=== PATIENT | male | born 1930 | race Caucasian/White ===

== ENCOUNTER 2017-08-13 17:52 | Inpatient (IN) | payer OTHER ==
[~2017-08-13] VITALS: Ht 180.3 cm; Wt 80.5 kg
[~2017-08-13 17:52] MED LIST: ASPI-435 PO; ATOR-26 PO; CHOL1000 PO; LISI-461 PO; LORA-741 PO; LVQ500 PO; MAGNESIUM 250MG PO; METFTAB PO; METO50TA16 PO; MULTCAP98 PO
[2017-08-13] MEDS ORDERED: SODIUM CHLORIDE 0.9% 1000ML 500 ML IV STA (18:23)
[2017-08-13] MEDS ORDERED: ONDANSETRON INJ 2 MG/ML 2 ML VIAL IV STA (18:23)
[2017-08-13] MEDS ORDERED: PIPERACILLIN/TAZOBACTAM 4.5 GM/100ML D5W IV STA (18:23)
--- NOTE | 2017-08-13 19:06 | DIAGNOSTIC IMAGING REPORT ---
CHEST ONE VIEW PORTABLE CLINICAL HISTORY: Abdominal pain. COMPARISON STUDY: Chest radiograph June 08, 2015 and PET/CT July 14, 2009. FINDINGS: Lung volumes are at the lower limits of normal. There is no pneumothorax or pleural effusion. There is mild asymmetric left lower lung opacity. Several calcified pleural plaques are noted. There is no evidence for pulmonary edema. Moderate cardiomegaly is noted. IMPRESSION: Mild asymmetric left lower lung interstitial thickening and opacity. This is likely chronic or atelectatic. However, pneumonia could appear similar. Follow-up radiographs are recommended. Electronically signed by: Cornel Huff M.D. 08/13/2017 7:05 PM Dictated Date/Time: 08/13/2017 7:03 PM
[2017-08-13 19:15] LABS: BASO % 0.1 %; BASO ABS # 0.01 K/uL (0-0.2); HEMATOCRIT 37.8 % (42-52); HEMOGLOBIN 12.9 g/dL (14.0-18.0); IG# 0.07 K/uL (0.00-0.02); LYMPH % 6.5 %; LYMPH ABS # 1.02 K/uL (1.2-3.4); MEAN CELL VOLUME 85.9 fL (80-100); MEAN CORPUSCULAR HEMOGLOBIN 29.3 pg (25-34); MEAN CORPUSCULAR HGB CONC 34.1 g/dl (32-36); MEAN PLATELET VOLUME 9.2 fL (7.4-10.4); MONO % 10.5 %; MONO ABS # 1.66 K/uL (0.11-0.59); NEUT % 82.5 %; NEUT ABS # 13.02 K/uL (1.4-6.5); PLATELET COUNT 179 K/uL (130-400); RED CELL DISTRIBUTION WIDTH CV 14.1 % (11.5-14.5); RED CELL DISTRIBUTION WIDTH SD 44.2 fL (36.4-46.3); WHITE BLOOD COUNT 15.78 K/uL (4.8-10.8)
--- NOTE | 2017-08-13 19:17 | EMERGENCY ROOM VISIT NOTE ---
History Report prepared by Lyn: Quique Holland Under the Supervision of: Dr. Aiden Mcclain M.D. First contact with patient: 18:18 Chief Complaint: ABNORMAL DIAGNOSTIC TESTING Stated Complaint: ACUTE PAIN IN ABDOMEN History of Present Illness The patient is an 87 year old male who presents to the Emergency Room with complaints of constant, worsening, sharp, abdominal pain beginning at 0300 this morning. The patient states that he felt fine after he ate last night and woke up at around 0300 today with RUQ abdominal pain. He notes that his pain has since worsened throughout the day. He reports that he originally thought that he was constipated, but went to [facility] today and had a CT done which showed that he had a problem with his gallbladder. The patient states that he has not had any symptoms similar to his current symptoms. He notes that his pain worsens when he takes a deep breath. He denies any cough, vomiting, nausea, urinary symptoms, fever, chills, and diarrhea. He reports that he has a history of lymphoma and diabetes. Per , the patient has a family history of gallstones. The patient rates his pain as a 9-10/10. Source of History: patient Onset: 0300 this morning Position: abdomen (RUQ) Symptom Intensity: 9-10/10 Quality: sharp Timing: constant, worsening Modifying Factors (Worsening): breathing (deep breathing) Associated Symptoms: No fevers, No chills, No cough, No nausea, No vomiting , No diarrhea, No urinary symptoms Note: The patient states that he had a CT done today which showed a problem with his gallbladder. Review of Systems See HPI for pertinent positives & negatives. A total of 10 systems reviewed and were otherwise negative. Past Medical & Surgical Medical Problems: (1) Cerebrovascular accident involving cerebellum (2) Diabetes mellitus, type II (3) H/O Hodgkin's lymphoma (4) HLD (hyperlipidemia) (5) Hypertension (6) MDD (major depressive disorder) Surgical Problems: (1) History of left-sided carotid endarterectomy (2) History of lumbar laminectomy (3) S/P prostatectomy Social History Problems: (1) Heart disease Family History Cancer Diabetes mellitus FH: heart disease FHx: gallstones FHx: lung disease Hypertension Social History Smoking Status: Never Smoker Alcohol Use: occasionally Drug Use: none Marital Status: Housing Status: lives with family Occupation Status: retired Current/Historical Medications Scheduled Aspirin (Aspirin Ec), 81 MG PO QAM Atorvastatin (Lipitor), 80 MG PO QPM Cholecalciferol (Vitamin D3), 2,000 INTER.UNIT PO QAM Escitalopram (Lexapro), 10 MG PO QPM Latanoprost (Xalatan 0.005% Oph Malia), 1 DROP OPB HS Magnesium Oxide (Mag-Ox), 400 MG PO QAM Metformin Ext Rel (Glucophage Ext Rel), 500 MG PO BID Metoprolol Tartrate (Lopressor) (Lopressor), 25 MG PO QAM Multiple Vitamins W/ Minerals (Icaps), 1 CAP PO QAM Scheduled PRN Fluticasone Propionate (Nasal) (Flonase Allergy Relief), 2 SPRAYS ROB DAILY PRN for Allergy Symptoms Lorazepam (Ativan), 0.5 MG PO TID PRN for Anxiety Allergies Coded Allergies: Cephalosporins (Verified Allergy, Intermediate, KEFLEX-HAS HAD FORTAZ W/O PROBLEM, 06/08/15) KEFLEX Oxycodone (Unverified Allergy, Mild, HALLUCINATIONS, 06/08/15) Metoclopramide (Verified Allergy, Unknown, 06/08/15) Promethazine (Verified Allergy, Unknown, 06/08/15) Physical Exam Vital Signs Date Time Temp Pulse Resp B/P (MAP) Pulse Ox O2 Delivery O2 Flow Rate FiO2 08/13/17 19:52 90 Nasal Cannula 2.0 08/13/17 19:49 93 20 142/71 90 Nasal Cannula 2.0 08/13/17 18:13 36.5 108 18 139/71 97 Room Air Physical Exam GENERAL: Patient is in no acute distress. HEENT: No acute trauma, normocephalic atraumatic, mucous membranes moist, no nasal congestion, no scleral icterus. NECK: No stridor, no adenopathy, no meningismus, trachea is midline. LUNGS: Clear to auscultation bilaterally, no wheeze, no rhonchi, breath sounds equal. HEART: Tachycardic with a 2/6 systolic murmur, regular rhythm. ABDOMEN: Soft, moderately tender to the RUQ, bowel sounds positive, no hernias, no peritonitis. EXTREMITIES: No cyanosis or edema, full range of motion of all the joints without pain or difficulty, no signs for acute trauma. NEUROLOGIC: Oriented x 3, no acute motor or sensory deficits, no focal weakness. SKIN: No rash, no jaundice, no diaphoresis. Medical Decision & Procedures ER Provider Diagnostic Interpretation: CT ABDOMEN/PELVIS Without Contrast performed in the outpatient setting. CT shows distended gallbladder, multiple gallstones, and pericholecystic inflammatory changes consistent with acute cholecystitis. Radiology results as stated below per my review and radiologist interpretation: CHEST ONE VIEW PORTABLE FINDINGS: Lung volumes are at the lower limits of normal. There is no pneumothorax or pleural effusion. There is mild asymmetric left lower lung opacity. Several calcified pleural plaques are noted. There is no evidence for pulmonary edema. Moderate cardiomegaly is noted. IMPRESSION: Mild asymmetric left lower lung interstitial thickening and opacity. This is likely chronic or atelectatic. However, pneumonia could appear similar. Follow-up radiographs are recommended. Electronically signed by: Cornel Huff M.D. 08/13/2017 7:05 PM ABDOMINAL ULTRASOUND, RIGHT UPPER QUADRANT FINDINGS: Liver is sonographically normal. This exam is mildly compromised by suboptimal penetration and the pancreas is obscured on this study. There is no biliary ductal dilatation. Stones and sludge are noted within the gallbladder. There is moderate gallbladder wall thickening. The patient was tender over the gallbladder during this exam. There is no right hydronephrosis. Note is made of a 3.3 cm right renal cyst. IMPRESSION: 1. Cholelithiasis and sludge within gallbladder with moderate gallbladder wall thickening. The findings suggest acute cholecystitis. 2. No biliary ductal dilatation. 3. Obscured pancreas due to overlying bowel gas. Electronically signed by: Cornel Huff M.D. 08/13/2017 8:53 PM Laboratory Results Test 08/13/17 18:47 Immature Granulocyte % (Auto) 0.4 % White Blood Count 15.78 K/uL (4.8-10.8) Red Blood Count 4.40 M/uL (4.7-6.1) Hemoglobin 12.9 g/dL (14.0-18.0) Hematocrit 37.8 % (42-52) Mean Corpuscular Volume 85.9 fL (80-100) Mean Corpuscular Hemoglobin 29.3 pg (25-34) Mean Corpuscular Hemoglobin Concent 34.1 g/dl (32-36) Platelet Count 179 K/uL (130-400) Mean Platelet Volume 9.2 fL (7.4-10.4) Neutrophils (%) (Auto) 82.5 % Lymphocytes (%) (Auto) 6.5 % Monocytes (%) (Auto) 10.5 % Eosinophils (%) (Auto) 0.0 % Basophils (%) (Auto) 0.1 % Neutrophils # (Auto) 13.02 K/uL (1.4-6.5) Lymphocytes # (Auto) 1.02 K/uL (1.2-3.4) Monocytes # (Auto) 1.66 K/uL (0.11-0.59) Eosinophils # (Auto) 0.00 K/uL (0-0.5) Basophils # (Auto) 0.01 K/uL (0-0.2) Immature Granulocyte # (Auto) 0.07 K/uL (0.00-0.02) Prothrombin Time 12.2 SECONDS (9.0-12.0) Prothromb Time International Ratio 1.2 (0.9-1.1) Activated Partial Thromboplast Time 27.6 SECONDS (21.0-31.0) Partial Thromboplastin Ratio 1.1 Urine Color DK YELLOW Urine Appearance TURBID (CLEAR) Urine pH 5.0 (4.5-7.5) Urine Specific [place] 1.022 (1.000-1.030) Urine Protein 1+ (NEG) Urine Glucose (UA) 1+ (NEG) Urine Ketones TRACE (NEG) Urine Occult Blood 1+ (NEG) Urine Nitrite POS (NEG) Urine Bilirubin NEG (NEG) Urine Urobilinogen NEG (NEG) Urine Leukocyte Esterase LARGE (NEG) Urine WBC (Auto) >30 /hpf (0-5) Urine RBC (Auto) 0-4 /hpf (0-4) Urine Hyaline Casts (Auto) 1-5 /lpf (0-5) Urine Epithelial Cells (Auto) 5-10 /lpf (0-5) Urine Bacteria (Auto) 4+ (NEG) Lipase 79 U/L (73-393) Laboratory results reviewed by me. Medications Administered Medications (Trade) Dose Ordered Sig/Amilcar Route Start Time Stop Time Status Last Admin Dose Admin Sodium Chloride 500 ml @ 999 mls/hr Q31M STAT IV 08/13/17 18:23 08/13/17 18:53 DC 08/13/17 18:23 999 MLS/HR Ondansetron HCl (Zofran Inj) 4 mg NOW STAT IV 08/13/17 18:23 08/13/17 18:27 DC 08/13/17 19:02 4 MG Piperacillin Sod/ Tazobactam Sod (Zosyn Iv) 4.5 gm NOW STAT IV 08/13/17 18:23 08/13/17 18:27 DC 08/13/17 19:02 4.5 GM Magnesium Sulfate (Magnesium Sulfate) 1 gm NOW STAT IV 08/13/17 19:26 08/13/17 19:27 DC 08/13/17 19:26 1 GM Sodium Chloride 500 ml @ 999 mls/hr Q31M STAT IV 08/13/17 19:29 08/13/17 19:59 DC 08/13/17 19:29 999 MLS/HR Ketorolac Tromethamine (Toradol Inj) 15 mg NOW STAT IV 08/13/17 20:40 08/13/17 20:41 DC 08/13/17 20:54 15 MG ECG Per My Interpretation Indication: abdominal pain Rate (beats per minute): 92 Rhythm: normal sinus Findings: LBBB (imcomplete), other (No ST elevation, no PVCs) ED Course 1818: The patient was evaluated in room B3. A complete history and physical exam was performed. 1822: Zosyn Iv 4.5gm IV, Zofran Inj 4mg IV, Sodium Chloride 500 ml @ 999 mls/hr IV 1829: Discussed the patients case with Dr. Wharton - General Surgery, [facility] [place]. He states that the patient sounds like he will have to be admitted first to the hospital, and then to surgery, rather than being admitted to surgery directly. 1924: I reevaluated and updated the patient. He agrees to the treatment plan. 1925: Magnesium Sulfate 1gm IV 1928: Sodium Chloride 500 ml @ 999 mls/hr IV 2020: Upon reexamination the patient is stable. I discussed results and treatment plan with the patient. He verbalizes agreement and understanding. I spoke with [facility]. We discussed the patient's results and findings. The patient will be evaluated by Dr. Minaya for further management. 2037: I rechecked the patient. He is still in [place]. 2039: Toradol Inj 15mg IV 2105: I reevaluated and updated the patient. Medical Decision Differential diagnoses include: acute cholecystitis, gallstones, UTI, diverticulitis, appendicitis, pneumonia, bowel rupture, renal failure, electrolyte imbalance, and anemia. There is a moderate leukocytosis at 15,000, this is consistent with infection. No concerning anemia. Magnesium was low, no kidney failure. Bilirubin was elevated. No evidence for pancreatitis. Chest film showed some atelectasis, no obvious pneumonia, no pneumothorax. EKG showed a sinus rhythm, no acute ischemic change. Gallbladder ultrasound does show evidence for acute cholecystitis. Urinalysis does suggest infection. Urine culture and blood cultures are pending. Lactic acid level was somewhat elevated, concerning for infection/sepsis. The patient presents with acute cholecystitis diagnosed as an outpatient. He also appears to have a UTI. He has an elevated white count and lactic acid level. The patient received IV saline, he received IV Toradol for pain. He was given IV Zosyn as antibiotic coverage. He received IV magnesium and IV Zofran. The patient seems to be resting fairly comfortably. I do think a hospital stay is warranted. I discussed his case with case management. I talked with the on- call surgeon as well as the on-call hospitalist. Medication Reconcilliation Current Medication List: was personally reviewed by me Blood Pressure Screening Patient's blood pressure: Elevated blood pressure Blood pressure disposition: Referred to PCP Consults Time Called: 1827 [facility] Returned Call: 1829 Discussed the patients case. He states that the patient sounds like he will have to be admitted first to the hospital, and then to surgery, rather than being admitted to surgery directly. Additional Consults: Time Called: 2015 [facility] Returned Call: 2020 Additional Comments: Discussed the patient's case. The patient will be evaluated for further management. Impression Primary Impression: Acute cholecystitis Additional Impressions: RUQ abdominal pain UTI (urinary tract infection) Scribe Attestation The scribe's documentation has been prepared under my direction and personally reviewed by me in its entirety. I confirm that the note above accurately reflects all work, treatment, procedures, and medical decision making performed by me. Departure Information Dispostion Being Evaluated By Hospitalist Referrals Rozick, Mehdi S.,M.D. (PCP) Patient Instructions [facility] Problem Qualifiers
[2017-08-13 19:22] LABS: INR 1.2 (0.9-1.1); PTT PATIENT 27.6 SECONDS (21.0-31.0)
[2017-08-13 19:24] LABS: ALBUMIN 3.5 gm/dl (3.4-5.0); CALCIUM 9.1 mg/dl (8.5-10.1); CREATININE 1.11 mg/dl (0.60-1.40); POTASSIUM 3.9 mmol/L (3.5-5.1)
[2017-08-13] MEDS ORDERED: MAGNESIUM SULFATE 1GM / D5W 1 GM BAG IV STA (19:26)
[2017-08-13] MEDS ORDERED: SODIUM CHLORIDE 0.9% 500ML 500 ML IV STA (19:29)
[2017-08-13 19:40] LABS: TOTAL PROTEIN 7.4 gm/dl (6.4-8.2)
[2017-08-13] MEDS ORDERED: KETOROLAC TROMETHAMINE 30 MG/ML VIAL IV STA (20:40)
--- NOTE | 2017-08-13 20:54 | DIAGNOSTIC IMAGING REPORT ---
ABDOMINAL ULTRASOUND, RIGHT UPPER QUADRANT HISTORY: Right upper quadrant abdominal pain. COMPARISON: PET/CT July 14, 2009 FINDINGS: Liver is sonographically normal. This exam is mildly compromised by suboptimal penetration and the pancreas is obscured on this study. There is no biliary ductal dilatation. Stones and sludge are noted within the gallbladder. There is moderate gallbladder wall thickening. The patient was tender over the gallbladder during this exam. There is no right hydronephrosis. Note is made of a 3.3 cm right renal cyst. IMPRESSION: 1. Cholelithiasis and sludge within gallbladder with moderate gallbladder wall thickening. The findings suggest acute cholecystitis. 2. No biliary ductal dilatation. 3. Obscured pancreas due to overlying bowel gas. Electronically signed by: Cornel Huff M.D. 08/13/2017 8:53 PM Dictated Date/Time: 08/13/2017 8:51 PM
[2017-08-13] MEDS ORDERED: DEXTROSE 50% 50 ML SYR IV PRN (21:30)
[2017-08-13] MEDS ORDERED: GLUCOSE 10 TABS/TUBE PO PRN (21:30)
[2017-08-13] MEDS ORDERED: GLUCAGON FOR INJ 1 MG VIAL SQ PRN (21:30)
[2017-08-13] MEDS ORDERED: ONDANSETRON INJ 2 MG/ML 2 ML VIAL IV PRN (21:30)
[2017-08-13] MEDS ORDERED: SODIUM CHLORIDE 0.9% 500ML 500 ML IV SCH (21:30)
[2017-08-13] MEDS ORDERED: GLUCOSE 40% GEL 15 GM TUBE PO PRN (21:30)
[2017-08-13] MEDS ORDERED: MoRPHine SULFATE 2 MG/ML CARP IV PRN (21:30)
--- NOTE | 2017-08-13 21:33 | History and Physical ---
History & Physical Date & Time of Service: Aug 13, 2017 at 21:33 Chief Complaint: Acute Pain In Abdomen Primary Care Physician: Mehdi Jernigan M.D. History of Present Illness Source: patient, clinic records, hospital records Patient is an 87-year-old male with a PMH of DM II, HTN, history of lymphoma ( in remission) and other medical problems listed below who presents with abdominal pain that began this morning. Patient was in normal state of health last evening when he went to bed but awoke at 0300 with sharp, nonradiating, 9/ 10 intermittent right upper quadrant pain. Pain is worse with inspiration and there are no alleviating factors. Associated with poor p.o. intake and decreased appetite today. Denies any associated nausea, vomiting or diarrhea. Went to PCP for evaluation and had a CT abdomen/pelvis done, which showed evidence of acute cholecystitis. Was sent to ED for IV antibiotics and surgical evaluation. Denies lightheadedness, visual changes, chest pain, SOB or LE swelling. Denies a personal history of gallstones. Lives with his , who manages patient's medications. Takes baby aspirin daily but denies use of anticoagulation. Denies history of heart disease, CHF or CVA (H/o cerebellar CVA on [facility] problem list, however). Is a DNR. 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 (2) Diabetes mellitus, type II Status: Chronic (3) H/O Hodgkin's lymphoma Status: Chronic (4) HLD (hyperlipidemia) Status: Chronic (5) Hypertension Status: Chronic (6) MDD (major depressive disorder) Status: Chronic Surgical Problems: (1) History of left-sided carotid endarterectomy Permanent Comment: 2000 Status: Chronic (2) History of lumbar laminectomy Permanent Comment: 2014 Status: Chronic (3) S/P prostatectomy Status: Chronic Social History Problems: (1) Heart disease Status: Chronic Family History Cancer Diabetes mellitus FH: heart disease FHx: gallstones FHx: lung disease Hypertension Social History Smoking Status: Former Smoker Alcohol Use: none Drug Use: none Marital Status: Housing status: lives with significant other Occupational Status: retired Allergies Coded Allergies: Cephalosporins (Verified Allergy, Intermediate, KEFLEX-HAS HAD FORTAZ W/O PROBLEM, 06/08/15) KEFLEX Oxycodone (Unverified Allergy, Mild, HALLUCINATIONS, 06/08/15) Metoclopramide (Verified Allergy, Unknown, 06/08/15) Promethazine (Verified Allergy, Unknown, 06/08/15) Home Medications Scheduled Aspirin (Aspirin Ec), 81 MG PO QAM Atorvastatin (Lipitor), 80 MG PO QPM Cholecalciferol (Vitamin D3), 2,000 INTER.UNIT PO QAM Escitalopram (Lexapro), 10 MG PO QPM Latanoprost (Xalatan 0.005% Oph Malia), 1 DROP OPB HS Magnesium Oxide (Mag-Ox), 400 MG PO QAM Metformin Ext Rel (Glucophage Ext Rel), 500 MG PO BID Metoprolol Tartrate (Lopressor) (Lopressor), 25 MG PO QAM Multiple Vitamins W/ Minerals (Icaps), 1 CAP PO QAM Scheduled PRN Fluticasone Propionate (Nasal) (Flonase Allergy Relief), 2 SPRAYS ROB DAILY PRN for Allergy Symptoms Lorazepam (Ativan), 0.5 MG PO TID PRN for Anxiety Review of Systems Ten systems reviewed and negative except as noted in the HPI. Constitutional: No fever, No chills, No sweats, No weight loss, No weakness Eyes: No worsening of vision, No diplopia ENT: No nasal symptoms, No sore throat Respiratory: No cough, No sputum, No wheezing, No shortness of breath, No dyspnea on exertion, No dyspnea at rest Cardiovascular: No chest pain, No orthopnea, No edema, No palpitations Abdomen: + pain, No nausea, No vomiting, No diarrhea, No constipation Musculoskeletal: No joint pain, No muscle pain Genitourinary - Male: No hematuria, No dysuria, No urinary frequency, No urinary urgency Neurologic: No paralysis, No weakness, No numbness/tingling Hematologic / Lymphatic: No abnormal bleeding/bruising Integumentary: No rash, No itch Physical Exam Vital Signs Date Time Temp Pulse Resp B/P (MAP) Pulse Ox O2 Delivery O2 Flow Rate FiO2 08/13/17 19:52 90 Nasal Cannula 2.0 08/13/17 19:49 93 20 142/71 90 Nasal Cannula 2.0 08/13/17 18:13 36.5 108 18 139/71 97 Room Air General Appearance: + mild distress Head: normocephalic, atraumatic Eyes: normal inspection, PERRL, sclerae normal ENT: normal ENT inspection, hearing grossly normal, pharynx normal (dry mucous membranes ) Neck: supple, thyroid normal, trachea midline Respiratory/Chest: chest non-tender, lungs clear, normal breath sounds, no respiratory distress, no accessory muscle use Cardiovascular: regular rate, rhythm, normal peripheral pulses, + systolic murmur Abdomen/GI: normal bowel sounds, soft, no organomegaly, + tenderness (TTP in RUQ, RLQ ) Back: normal inspection Extremities/Musculoskelatal: normal inspection, no calf tenderness, no pedal edema Neurologic/Psych: no motor/sensory deficits, alert, normal mood/affect, oriented x 3 Skin: normal color, warm/dry Diagnostics Laboratory Results Results Past 24 Hours Test 08/13/17 18:47 08/13/17 19:45 Range/Units White Blood Count 15.78 4.8-10.8 K/uL Red Blood Count 4.40 4.7-6.1 M/uL Hemoglobin 12.9 14.0-18.0 g/dL Hematocrit 37.8 42-52 % Mean Corpuscular Volume 85.9 80-100 fL Mean Corpuscular Hemoglobin 29.3 25-34 pg Mean Corpuscular Hemoglobin Concent 34.1 32-36 g/dl Platelet Count 179 130-400 K/uL Mean Platelet Volume 9.2 7.4-10.4 fL Neutrophils (%) (Auto) 82.5 % Lymphocytes (%) (Auto) 6.5 % Monocytes (%) (Auto) 10.5 % Eosinophils (%) (Auto) 0.0 % Basophils (%) (Auto) 0.1 % Neutrophils # (Auto) 13.02 1.4-6.5 K/uL Lymphocytes # (Auto) 1.02 1.2-3.4 K/uL Monocytes # (Auto) 1.66 0.11-0.59 K/uL Eosinophils # (Auto) 0.00 0-0.5 K/uL Basophils # (Auto) 0.01 0-0.2 K/uL RDW Standard Deviation 44.2 36.4-46.3 fL RDW Coefficient of Variation 14.1 11.5-14.5 % Immature Granulocyte % (Auto) 0.4 % Immature Granulocyte # (Auto) 0.07 0.00-0.02 K/uL Prothrombin Time 12.2 9.0-12.0 SECONDS Prothromb Time International Ratio 1.2 0.9-1.1 Activated Partial Thromboplast Time 27.6 21.0-31.0 SECONDS Partial Thromboplastin Ratio 1.1 Urine Color DK YELLOW Urine Appearance TURBID CLEAR Urine pH 5.0 4.5-7.5 Urine Specific [place] 1.022 1.000-1.030 Urine Protein 1+ NEG Urine Glucose (UA) 1+ NEG Urine Ketones TRACE NEG Urine Occult Blood 1+ NEG Urine Nitrite POS NEG Urine Bilirubin NEG NEG Urine Urobilinogen NEG NEG Urine Leukocyte Esterase LARGE NEG Urine WBC (Auto) >30 0-5 /hpf Urine RBC (Auto) 0-4 0-4 /hpf Urine Hyaline Casts (Auto) 1-5 0-5 /lpf Urine Epithelial Cells (Auto) 5-10 0-5 /lpf Urine Bacteria (Auto) 4+ NEG Sodium Level 131 136-145 mmol/L Potassium Level 3.9 3.5-5.1 mmol/L Chloride Level 95 98-107 mmol/L Carbon Dioxide Level 25 21-32 mmol/L Anion Gap 11.0 3-11 mmol/L Blood Urea Nitrogen 21 7-18 mg/dl Creatinine 1.11 0.60-1.40 mg/dl Est Creatinine Clear Calc Drug Dose 49.9 ml/min Estimated GFR () 68.8 Estimated GFR (Non- 59.4 BUN/Creatinine Ratio 18.8 10-20 Random Glucose 217 70-99 mg/dl Calcium Level 9.1 8.5-10.1 mg/dl Magnesium Level 1.4 1.8-2.4 mg/dl Total Bilirubin 1.9 0.2-1 mg/dl Aspartate Amino Transf (AST/SGOT) 25 15-37 U/L Alanine Aminotransferase (ALT/SGPT) 22 12-78 U/L Alkaline Phosphatase 35 45-117 U/L Total Protein 7.4 6.4-8.2 gm/dl Albumin 3.5 3.4-5.0 gm/dl Globulin 3.9 2.5-4.0 gm/dl Albumin/Globulin Ratio 0.9 0.9-2 Lipase 79 73-393 U/L Lactic Acid Level 2.7 0.4-2.0 mmol/L Microbiology Results 08/13/17 Urine Culture, Received Pending Diagnostic Radiology RUQ ultrasound: IMPRESSION: 1. Cholelithiasis and sludge within gallbladder with moderate gallbladder wall thickening. The findings suggest acute cholecystitis. 2. No biliary ductal dilatation. 3. Obscured pancreas due to overlying bowel gas. CT [facility] Distended gall bladder with multiple gallstones and evidence of pericholecystic inflammatory changes suggestive of acute cholecystitis CXR: IMPRESSION: Mild asymmetric left lower lung interstitial thickening and opacity. This is likely chronic or atelectatic. However, pneumonia could appear similar. Follow-up radiographs are recommended. EKG Normal sinus rhythm, Left axis deviation, Incomplete left bundle block, Nonspecific ST abnormality When compared with ECG of 14-MAR-2016 16:46, No significant change was found No change from prior EKG Impression Assessment and Plan Patient is an 87-year-old male with a PMH of DM II, HTN, history of lymphoma ( in remission) and other medical problems listed below who presents with abdominal pain that began this morning. Sepsis 2/2 acute cholecystitis, UTI: -Severe RUQ pain beginning at 0300 this AM -Leukocytosis of 15.78, HR >90, source of abd infection, UTI -Lactate of 2.7 -Cont IVF resuscitation -Repeat lactate Acute cholecystitis: -Surgery consulted -Plan for OR tomorrow -NPO except chips and sips, meds -Zosyn for empiric coverage -Blood cultures pending -Cont IVF, pain control Complicated UTI: - + UA, culture pending -Zosyn -IVF DM II: -BSG elevated to 217 -A1c of 7.1 in Apr 2017 -Repeat a1c -Hold oral agents -SSI while in-patient -BSG checks AC HS HTN: -Normotensive -Cont beta miriam Mood disorder: -Cont SSRI -Ativan PRN H/o Lymphoma: -In remission -S/p chemo Hypomagnesemia: -Replaced Mg in ED -Cont oral supplement -Monitor Vit D deficiency: -Vit D held for now DVT Ppx: SQ heparin Code status: DNR per discussion with patient PCP: Delon Dispo: Admitted to med/surg. Discharge planning ordered. Patient seen in collaboration with Dr. Murray. Please see addendum. Attending Note: Patient is an 87 yr male who presents with history of Right sided abdominal pain which has been progressively worsening since one day. Patient had CT scan which is suggestive of acute cholecystitis. Patient had H/O cholelithiasis but were never symptomatic. UA is suggestive of UTI but patient denies any urinary symptoms. He had UTI in the past. Has decreased appetite. Physical Exam: Vitals signs as noted above General Appearance:Moderately built and nourished, no apparent distress Head: normocephalic, Atraumatic Eyes: normal inspection, EOMI, PERRL Neck: supple, Trachea midline Respiratory/Chest: Normal breath sounds, CTA Cardiovascular: S1, S2, + systolic murmur Abdomen/GI:Soft, RUQ and RLQ tender, Bowel sounds present Extremities/Musculoskelatal:normal inspection, Trace edema Neurologic/Psych:AAOX3, grossly no focal neurological deficits Skin:normal color,warm Assessment and Plan: Sepsis: Secondary to Acute Cholecystitis and possible UTI IV fluids, IV antibiotics Follow up cultures Surgery consulted hypomagnesemia: Replace and monitor hyponatremia: IV fluids Monitor sodium levels I personally reviewed the record. Patient is interviewed and examined at bedside. Patient's care is coordinated with Kirsten Eastman PA-C. Please refer to the documentation above for details of patient's presentation and for discussion of other issues. Resuscitation Status VTE Prophylaxis Will order VTE Prophylaxis: Yes
[2017-08-13] MEDS ORDERED: LATA0.5S OPB (21:38)
[2017-08-13] MEDS ORDERED: MAGN400T6 PO (21:38)
[2017-08-13] MEDS ORDERED: ESCI10TA17 PO (21:38)
[2017-08-13] MEDS ORDERED: ASPI81TA28 PO (21:38)
[2017-08-13] MEDS ORDERED: BRIM0.2S18 OPB (21:38)
[2017-08-13] MEDS ORDERED: FLUT0.15 NAE (21:44)
[2017-08-13] MEDS ORDERED: CHOL2000 PO (21:44)
[2017-08-13] MEDS ORDERED: PIPERACILL/TAZOBAC CONSULT ACTIVE PRN ×2 (21:54→23:30)
[2017-08-13 21:57] VITALS: BP 144/74; PULSE 78; TEMP 37; O2SAT 92; Ht 180.3 cm; Wt 80.5 kg
[2017-08-13] MEDS ORDERED: KETOROLAC TROMETHAMINE 15 MG/ML VIAL IV. PRN (22:00)
[2017-08-13] MEDS ORDERED: SODIUM CHLORIDE 0.9% 1000ML 1,000 ML IV SCH ×2 (22:00→23:00)
[2017-08-13] MEDS ORDERED: FLUTICASONE PROPIONATE NA SPR 16 GM BTL NAE PRN (22:15)
[2017-08-13] MEDS ORDERED: LORAZEPAM 0.5 MG TAB PO PRN (22:15)
[2017-08-13] MEDS ORDERED: NURSING DECISION MEDICATION ORDER SCH (23:15)
--- NOTE | 2017-08-13 23:21 | Surgery Consultation ---
Consultation Date of Consultation: Aug 13, 2017. Attending Physician: History of Present Illness Patient is a 87M who presented to the ED this evening with Sharp RUQ pain which began around 0300 this morning. Reports he felt fine after eating dinner last night but the pain woke him up from sleep this morning. He feels it has worsened throughout the day. He went to [facility] today and had a CT done which shows problems with his gallbladder. Denies symptoms like this in the past. He does report a decreased appetite. Denies nausea/vomiting/fever/chills/recent illness. He has been urinating and moving his bowels without issue. FHx positive for gallbladder disease. Denies use of blood thinning or anticoagulant medications. PSHx significant for port placement/removal, exploratory laparoscopy. WBC 15.78. RUQ U/S shows Cholelithiasis and sludge within gallbladder with moderate gallbladder wall thickening. The findings suggest acute cholecystitis. Past Medical/Surgical History Medical Problems: (1) Altered mental status Status: Acute Family History Cancer Diabetes mellitus FH: heart disease FHx: gallstones FHx: lung disease Hypertension Social History Smoking Status: Never Smoker Drug Use: none Marital Status: Housing Status: lives with family Occupation Status: retired Allergies Coded Allergies: Cephalosporins (Verified Allergy, Intermediate, KEFLEX-HAS HAD FORTAZ W/O PROBLEM, 06/08/15) KEFLEX Oxycodone (Unverified Allergy, Mild, HALLUCINATIONS, 06/08/15) Metoclopramide (Verified Allergy, Unknown, 06/08/15) Promethazine (Verified Allergy, Unknown, 06/08/15) Home Medications Scheduled Aspirin (Aspirin Ec), 81 MG PO QAM Atorvastatin (Lipitor), 80 MG PO QPM Cholecalciferol (Vitamin D3), 2,000 INTER.UNIT PO QAM Escitalopram (Lexapro), 10 MG PO QPM Latanoprost (Xalatan 0.005% Oph Malia), 1 DROP OPB HS Magnesium Oxide (Mag-Ox), 400 MG PO QAM Metformin Ext Rel (Glucophage Ext Rel), 500 MG PO BID Metoprolol Tartrate (Lopressor) (Lopressor), 25 MG PO QAM Multiple Vitamins W/ Minerals (Icaps), 1 CAP PO QAM Scheduled PRN Fluticasone Propionate (Nasal) (Flonase Allergy Relief), 2 SPRAYS ROB DAILY PRN for Allergy Symptoms Lorazepam (Ativan), 0.5 MG PO TID PRN for Anxiety Review of Systems Constitutional: No fever, No chills Respiratory: No shortness of breath Cardiovascular: No chest pain Abdomen: + pain (RUQ), No nausea, No vomiting, No diarrhea, No constipation Genitourinary - Male: No hematuria, No dysuria Integumentary: No new/changing skin lesions, No color change Physical Exam Date Time Temp Pulse Resp B/P (MAP) Pulse Ox O2 Delivery O2 Flow Rate FiO2 08/13/17 19:52 90 Nasal Cannula 2.0 08/13/17 19:49 93 20 142/71 90 Nasal Cannula 2.0 08/13/17 18:13 36.5 108 18 139/71 97 Room Air General Appearance: WD/WN, no apparent distress Head: normocephalic, atraumatic ENT: hearing grossly normal Respiratory/Chest: no respiratory distress, no accessory muscle use Abdomen/GI: soft, no organomegaly, no pulsatile mass, + tenderness (RUQ) Neurologic/Psych: alert, normal mood/affect, oriented x 3 Skin: normal color, warm/dry Laboratory Results Last 24 Hours Test 08/13/17 18:47 08/13/17 19:45 White Blood Count 15.78 K/uL Red Blood Count 4.40 M/uL Hemoglobin 12.9 g/dL Hematocrit 37.8 % Mean Corpuscular Volume 85.9 fL Mean Corpuscular Hemoglobin 29.3 pg Mean Corpuscular Hemoglobin Concent 34.1 g/dl Platelet Count 179 K/uL Mean Platelet Volume 9.2 fL Neutrophils (%) (Auto) 82.5 % Lymphocytes (%) (Auto) 6.5 % Monocytes (%) (Auto) 10.5 % Eosinophils (%) (Auto) 0.0 % Basophils (%) (Auto) 0.1 % Neutrophils # (Auto) 13.02 K/uL Lymphocytes # (Auto) 1.02 K/uL Monocytes # (Auto) 1.66 K/uL Eosinophils # (Auto) 0.00 K/uL Basophils # (Auto) 0.01 K/uL RDW Standard Deviation 44.2 fL RDW Coefficient of Variation 14.1 % Immature Granulocyte % (Auto) 0.4 % Immature Granulocyte # (Auto) 0.07 K/uL Prothrombin Time 12.2 SECONDS Prothromb Time International Ratio 1.2 Activated Partial Thromboplast Time 27.6 SECONDS Partial Thromboplastin Ratio 1.1 Urine Color DK YELLOW Urine Appearance TURBID Urine pH 5.0 Urine Specific [place] 1.022 Urine Protein 1+ Urine Glucose (UA) 1+ Urine Ketones TRACE Urine Occult Blood 1+ Urine Nitrite POS Urine Bilirubin NEG Urine Urobilinogen NEG Urine Leukocyte Esterase LARGE Urine WBC (Auto) >30 /hpf Urine RBC (Auto) 0-4 /hpf Urine Hyaline Casts (Auto) 1-5 /lpf Urine Epithelial Cells (Auto) 5-10 /lpf Urine Bacteria (Auto) 4+ Sodium Level 131 mmol/L Potassium Level 3.9 mmol/L Chloride Level 95 mmol/L Carbon Dioxide Level 25 mmol/L Anion Gap 11.0 mmol/L Blood Urea Nitrogen 21 mg/dl Creatinine 1.11 mg/dl Est Creatinine Clear Calc Drug Dose 49.9 ml/min Estimated GFR () 68.8 Estimated GFR (Non- 59.4 BUN/Creatinine Ratio 18.8 Random Glucose 217 mg/dl Calcium Level 9.1 mg/dl Magnesium Level 1.4 mg/dl Total Bilirubin 1.9 mg/dl Aspartate Amino Transf (AST/SGOT) 25 U/L Alanine Aminotransferase (ALT/SGPT) 22 U/L Alkaline Phosphatase 35 U/L Total Protein 7.4 gm/dl Albumin 3.5 gm/dl Globulin 3.9 gm/dl Albumin/Globulin Ratio 0.9 Lipase 79 U/L Assessment & Plan Acute cholecystitis Dr. Wharton in to see and examine patient. Plan for laparoscopic cholecystectomy w/ intraoperative cholangiogram, possible open with Dr. Wharton tomorrow AM. Risks, benefits, alternatives to the procedure were discussed - questions answered. Admit per medicine service. NPO after midnight, IV Zosyn 4.5g q6h, IV fluids , pain medication prn, zofran prn, SCDs. OR Notified. Please contact with questions or concerns.
[2017-08-13 23:25] VITALS: BP 131/71; PULSE 92; TEMP 37.3; O2SAT 91
[2017-08-13] MEDS: INSULIN ASPART 100 UNITS/ML 3 ML PEN SC SCH (23:40)
[2017-08-14] VITALS (8 sets, daily range): BP systolic 102–127; BP diastolic 56–70; PULSE 65–92; TEMP 36.5–37.3; O2SAT 91–97
[2017-08-14] MEDS: PIPERACILL/TAZOBAC IV 3.375 GM in DEXTROSE 5% 100ML IV SCH ×3 (00:12→16:17)
[2017-08-14] MEDS ORDERED: PIPERACILL/TAZOBAC IV 4.5 GM in DEXTROSE 5% 100ML 100 ML IV SCH (01:00)
[2017-08-14 03:50] LABS: HEMATOCRIT 34.3 % (42-52); HEMOGLOBIN 11.6 g/dL (14.0-18.0); MEAN CELL VOLUME 86.8 fL (80-100); MEAN CORPUSCULAR HEMOGLOBIN 29.4 pg (25-34); MEAN CORPUSCULAR HGB CONC 33.8 g/dl (32-36); MEAN PLATELET VOLUME 8.6 fL (7.4-10.4); PLATELET COUNT 151 K/uL (130-400); RED CELL DISTRIBUTION WIDTH CV 14.3 % (11.5-14.5); RED CELL DISTRIBUTION WIDTH SD 45.3 fL (36.4-46.3); WHITE BLOOD COUNT 18.69 K/uL (4.8-10.8)
[2017-08-14 04:09] LABS: ALBUMIN 2.8 gm/dl (3.4-5.0); CALCIUM 8.2 mg/dl (8.5-10.1); CREATININE 1.06 mg/dl (0.60-1.40); POTASSIUM 4.1 mmol/L (3.5-5.1)
[2017-08-14 04:13] LABS: TOTAL PROTEIN 6.1 gm/dl (6.4-8.2)
[2017-08-14] MEDS: INSULIN ASPART 100 UNITS/ML 3 ML PEN SC SCH ×4 (05:41→21:14)
[2017-08-14] MEDS ORDERED: HEPARIN SOD 5000 UNIT/0.5 ML CARP SQ SCH (06:00)
[2017-08-14] MEDS ORDERED: INSULIN ASPART 100 UNITS/ML 3 ML PEN SC SCH (07:00)
[2017-08-14 07:17] LABS: HEMOGLOBIN A1C 8.3 % (4.5-5.6)
[2017-08-14] MEDS: MAGNESIUM OXIDE 400 MG TAB PO SCH (09:56)
[2017-08-14] MEDS: MAGNESIUM SULFATE 1GM / D5W 1 GM in PREMIXED IN D5W 100 ML IV SCH ×5 (09:56→18:32)
[2017-08-14] MEDS: METOPROLOL TARTRATE 25 MG TAB PO SCH (09:58)
[2017-08-14] MEDS ORDERED: ONDANSETRON INJ 2 MG/ML 2 ML VIAL ONE ×2 (12:17→14:26)
[2017-08-14] MEDS ORDERED: LIDOCAINE HCL 2% 2 ML VIAL (20MG/ML) ONE (12:17)
[2017-08-14] MEDS ORDERED: FENTANYL CITRATE INJ 50 MCG/1 ML 2 ML VIAL ONE ×2 (12:18→13:52)
[2017-08-14] MEDS ORDERED: PROPOFOL IV EMULSION 10 MG/ML 20 ML VIAL IV ONE (12:18)
--- NOTE | 2017-08-14 12:59 | History & Physical Bridge Note ---
H&P Re-Evaluation Bridge Note: I have examined the patient, reviewed the History & Physical and in the interval since the performance of the History & Physical I have noted the following changes of clinical significance: No changes noted will proceed with johny tavarez r and c explained to pt and daughter
[2017-08-14] MEDS ORDERED: LIDOCAINE/EPINEPHRINE 1% 20 ML VIAL ONE (13:00)
[2017-08-14] MEDS ORDERED: CONRAY 60% 50 ML VIAL ONE (13:00)
[2017-08-14] MEDS ORDERED: CISATRACURIUM BESYLATE IV SOLN 2 MG/ML 10 ML VIAL ONE (13:05)
[2017-08-14] MEDS ORDERED: ACETAMINOPHEN 1000 MG/100 ML IV IV ONE (13:05)
[2017-08-14] MEDS ORDERED: ALBUMIN HUMAN 5% 12.5 GM/250 ML VIAL IV ONE (13:14)
--- NOTE | 2017-08-14 14:33 | [facility] Post Operative Brief Note ---
Immediate Operative Summary Operative Date Aug 14, 2017. Pre-Operative Diagnosis Acute cholecystitis Post-Operative Diagnosis Gangrenous gallbladder Procedure(s) Performed Laparoscopic Cholecystectomy with Cholangiogram Surgeon Dr Wharton Vp Treasurer Surgeon(s) Rubin Narayan PA-C Estimated Blood Loss 50ml Findings See Below gangrenous gallbladder Specimens A. Gallbladder Drains 19 yary per stab Anesthesia Type General
[2017-08-14] MEDS ORDERED: FENTANYL CITRATE INJ 50 MCG/1 ML 2 ML VIAL IV PRN (14:45)
[2017-08-14] MEDS ORDERED: ATROPINE SULFATE 0.1 MG/ML 5ML SYR IV PRN (14:45)
[2017-08-14] MEDS ORDERED: NALOXONE HCL 0.4 MG/1 ML VIAL/CARP IV PRN (14:45)
[2017-08-14] MEDS ORDERED: LABETALOL HCL IV 5 MG/ML 20ML IV PRN (14:45)
[2017-08-14] MEDS ORDERED: MoRPHine SULFATE 2 MG/ML CARP IV PRN (14:45)
[2017-08-14] MEDS ORDERED: EpHEDrine SULFATE INJ 50 MG/ML AMP IV PRN (14:45)
[2017-08-14] MEDS ORDERED: ONDANSETRON INJ 2 MG/ML 2 ML VIAL IV PRN (14:45)
--- NOTE | 2017-08-14 14:48 | DIAGNOSTIC IMAGING REPORT ---
CHOLANGIOGRAM O.R. CLINICAL HISTORY: 87 years-old Male presenting with IOC. TECHNIQUE: Fluoroscopy was provided for an intraoperative cholangiogram status post cholecystectomy. Contrast was injected through the cystic duct remnant. COMPARISON: Ultrasound from 08/13/2017. FINDINGS: Surgical clips noted from cholecystectomy. A catheter is positioned within the cystic duct. Contrast opacifies the cystic duct as well as the intrahepatic and extrahepatic ducts. Contrast is excreted into the small bowel. No intrahepatic or extra hepatic biliary ductal dilatation. No filling defects within the bile ducts to suggest choledocholithiasis. Fluoroscopy dosage (mGy): 0.85. Fluoroscopy time: 3.5 seconds. Number of fluoroscopic spot images: 3. IMPRESSION: Fluoroscopy provided for an intraoperative cholangiogram status post cholecystectomy. No filling defects within the common bile duct. Electronically signed by: Gilbert Montalvo M.D. 08/14/2017 2:47 PM Dictated Date/Time: 08/14/2017 2:46 PM
[2017-08-14] MEDS ORDERED: GLYCOPYRROLATE INJ 0.2 MG/ML VIAL ONE (14:56)
[2017-08-14] MEDS ORDERED: NEOSTIGMINE METHYLSULFATE 5 MG/5 ML SYR ONE (14:56)
--- NOTE | 2017-08-14 15:16 | OPERATIVE REPORT ---
DATE OF OPERATION: 08/14/2017 SURGEON: Dr. Wharton. SENIOR JAVA SOFTWARE ENGINEER: Eliel Narayan PA-C. PREOPERATIVE DIAGNOSES: Acute cholecystitis, cholelithiasis. POSTOPERATIVE DIAGNOSIS: Gangrenous cholecystitis. PROCEDURE: Laparoscopic cholecystectomy, intraoperative cholangiogram. SUMMARY: After induction of general endotracheal anesthesia, the area was prepped with Betadine solution and properly draped. I made a small transverse incision through the old scar that we had used for laparoscopy years ago for. Entered the abdomen to get some lymph node sampling. A small incision was made. We then entered the fascia with a small opening, 0 Vicryl suture was used as stay suture followed by 5 mm trocar. Point of entry inspected and no injury identified. Under direct visualization, we then placed an 11 mm trocars since the gallbladder we could see was draped very high and gangrenous. The omentum was draped over the right lobe of the liver into the gallbladder. At this point, we placed two 5 mm subcostal ports and able to grab the gallbladder which basically which was so friable that would fall apart. We entered the gallbladder in multiple areas and had some bleeding and bowel leak into gallbladder into the right upper quadrant area as we tried to maneuver and get this gallbladder out. We actually were able then to suction out most of the area, remove most of the bilirubinate stones that we identified. The neck of the gallbladder was elevated and actually was very friable that and at this point, we were able then to remove the gallbladder first, a very little of the posterior peritoneum attached the liver to avoid any ongoing bleeding, but he did have a moderate amount of oozing. Once this had been performed, we then placed in an Endopouch and took it out and sent it for cultures and sensitivities, aerobes and anaerobes. Attention was then turned down towards the neck of the gallbladder where we had been and we could see a very friable tissue, elevated and choked up a little bit longer to the point that we would seem to identify that it was the cystic duct, very thickened, a small opening in the cystic duct was made after we clipped it proximally with a 10 mm clip director of [employer]. Cholangiocath was positioned. Then we obtained serial x-ray which showed very corkscrew cystic duct, common bile duct free of any stones and flow into the duodenum. At this point, the cholangiocatheter was removed and we secured the cystic duct with 10 mm clips. Subhepatic suprahepatic area was then sectioned out copiously. I elected at this point that we would drain it with a 19 Fernando drain, which we brought out through the epigastric port taken out lateral through the subcostal port. While opening the drain in, we looked at the umbilical area, there was no evidence of any adhesions from previous surgery. Also of note, we needed to place a fan retractor to get the exposed down the deana hepatis area and during the procedure, we had a 5 mm trocar just to the left of midline above the umbilicus that we checked for hemostasis and appeared satisfactory. Individual trocars removed, last umbilical trocar. The stay sutures in the umbilical area were tied together, then we placed a 0 Vicryl [id number] x2 for the epigastric fascial stitch port site. The Fernando was attached to the skin edge with 2-0 silk suture. The procedure was tolerated well by the patient. We did have some bleeding about 50 mL of blood and taken to recovery room in good condition. I attest to the content of the Intraoperative Record and any orders documented therein. Any exception s are noted below.
--- NOTE | 2017-08-14 15:31 | Anesthesiology Progress Note ---
Anesthesia Post Op Note Date & Time Aug 14, 2017 at 15:31 Vital Signs Pain Intensity: 0 Vital Signs Past 12 Hours Date Time Temp Pulse Resp B/P (MAP) Pulse Ox O2 Delivery O2 Flow Rate FiO2 08/14/17 15:10 90 18 135/69 95 Oxymask 5 08/14/17 15:00 89 18 125/77 95 Oxymask 10 08/14/17 14:51 36.1 92 12 128/92 94 Oxymask 10 08/14/17 10:03 65 126/70 (88) 08/14/17 08:10 Room Air 08/14/17 07:22 37.3 92 17 124/68 (86) 91 Room Air Notes Mental Status: alert / awake / arousable, participated in evaluation Pt Amnestic to Procedure: Yes Nausea / Vomiting: adequately controlled Pain: adequately controlled Airway Patency, RR, SpO2: stable & adequate BP & HR: stable & adequate Hydration State: stable & adequate Anesthetic Complications: no major complications apparent
[2017-08-14] MEDS ORDERED: NURSING DECISION MEDICATION ORDER SCH (16:30)
[2017-08-14] MEDS: ESCITALOPRAM OXALATE 10 MG TAB PO SCH (21:07)
[2017-08-14] MEDS: ATORVASTATIN 40 MG TAB PO SCH (21:07)
[2017-08-14] MEDS: LATANOPROST 0.005% OP SOLN 2.5 ML BTL OPB SCH (21:09)
--- NOTE | 2017-08-14 21:41 | Progress Note ---
Medicine Progress Note Date & Time of Visit: Aug 14, 2017 at 14:44. Subjective 87-year-old male presented with acute cholecystitis. He is being seen today just out of surgery and is doing very well post-op with controlled pain and tolerating PO. He denies chest pain, shortness of breath or other symptoms at this time. His underwent a scheduled knee procedure today, and is down the brice from him. Objective Last 8 Hrs Date Time Temp Pulse Resp B/P (MAP) Pulse Ox O2 Delivery O2 Flow Rate FiO2 08/14/17 10:03 65 126/70 (88) 08/14/17 08:10 Room Air 08/14/17 07:22 37.3 92 17 124/68 (86) 91 Room Air Physical Exam: GEN: WNWD, in no acute distress, alert and appropriate HEENT: NC/AT, PERRL, normal sclerae, oxygen via NC in place. CARDIO: reg rate, S1/2 heard without m/g/r LUNGS: CTA bilaterally, no crackles, rales or wheezes, good diaphragmatic excursion ABD: soft, non-tender, non-distended, no rebound or guarding, incision sites are closed and non-draining. WENDIE drain in place. EXTREMITY: RP and DP palpable 2+ bilat, no LE swelling or edema, extremities are warm and well-perfused NEURO: CN 2-12 grossly intact, no gross focal deficits. MUSC: 5/5 strength throughout, no gross focal deficits. SKIN: warm and dry with wounds as above. Laboratory Results: 08/14/17 03:40 08/14/17 03:40 Test 08/13/17 18:47 08/14/17 03:40 08/14/17 20:54 Immature Granulocyte % (Auto) 0.4 % White Blood Count 15.78 K/uL (4.8-10.8) Red Blood Count 4.40 M/uL (4.7-6.1) 3.95 M/uL (4.7-6.1) Hemoglobin 12.9 g/dL (14.0-18.0) Hematocrit 37.8 % (42-52) Mean Corpuscular Volume 85.9 fL (80-100) 86.8 fL (80-100) Mean Corpuscular Hemoglobin 29.3 pg (25-34) 29.4 pg (25-34) Mean Corpuscular Hemoglobin Concent 34.1 g/dl (32-36) 33.8 g/dl (32-36) Platelet Count 179 K/uL (130-400) Mean Platelet Volume 9.2 fL (7.4-10.4) 8.6 fL (7.4-10.4) Neutrophils (%) (Auto) 82.5 % Lymphocytes (%) (Auto) 6.5 % Monocytes (%) (Auto) 10.5 % Eosinophils (%) (Auto) 0.0 % Basophils (%) (Auto) 0.1 % Neutrophils # (Auto) 13.02 K/uL (1.4-6.5) Lymphocytes # (Auto) 1.02 K/uL (1.2-3.4) Monocytes # (Auto) 1.66 K/uL (0.11-0.59) Eosinophils # (Auto) 0.00 K/uL (0-0.5) Basophils # (Auto) 0.01 K/uL (0-0.2) Immature Granulocyte # (Auto) 0.07 K/uL (0.00-0.02) Prothrombin Time 12.2 SECONDS (9.0-12.0) Prothromb Time International Ratio 1.2 (0.9-1.1) Activated Partial Thromboplast Time 27.6 SECONDS (21.0-31.0) Partial Thromboplastin Ratio 1.1 Urine Color DK YELLOW Urine Appearance TURBID (CLEAR) Urine pH 5.0 (4.5-7.5) Urine Specific [place] 1.022 (1.000-1.030) Urine Protein 1+ (NEG) Urine Glucose (UA) 1+ (NEG) Urine Ketones TRACE (NEG) Urine Occult Blood 1+ (NEG) Urine Nitrite POS (NEG) Urine Bilirubin NEG (NEG) Urine Urobilinogen NEG (NEG) Urine Leukocyte Esterase LARGE (NEG) Urine WBC (Auto) >30 /hpf (0-5) Urine RBC (Auto) 0-4 /hpf (0-4) Urine Hyaline Casts (Auto) 1-5 /lpf (0-5) Urine Epithelial Cells (Auto) 5-10 /lpf (0-5) Urine Bacteria (Auto) 4+ (NEG) Lipase 79 U/L (73-393) RDW Standard Deviation 45.3 fL (36.4-46.3) RDW Coefficient of Variation 14.3 % (11.5-14.5) Anion Gap 6.0 mmol/L (3-11) Est Creatinine Clear Calc Drug Dose 52.3 ml/min Estimated GFR () 72.8 Estimated GFR (Non- 62.8 BUN/Creatinine Ratio 18.7 (10-20) Estimated Average Glucose 192 mg/dl Hemoglobin A1c 8.3 % (4.5-5.6) Lactic Acid Level 2.0 mmol/L (0.4-2.0) Calcium Level 8.2 mg/dl (8.5-10.1) Magnesium Level 1.5 mg/dl (1.8-2.4) Total Bilirubin 2.0 mg/dl (0.2-1) Aspartate Amino Transf (AST/SGOT) 24 U/L (15-37) Alanine Aminotransferase (ALT/SGPT) 21 U/L (12-78) Alkaline Phosphatase 34 U/L (45-117) Total Protein 6.1 gm/dl (6.4-8.2) Albumin 2.8 gm/dl (3.4-5.0) Globulin 3.3 gm/dl (2.5-4.0) Albumin/Globulin Ratio 0.8 (0.9-2) Bedside Glucose 220 mg/dl (70-99) Date/Time Source Procedure Growth Status 08/13/17 23:13 Blood Blood Culture Pending Received 08/13/17 18:47 Urine , Clean Catch Urine Culture - Preliminary Gram Negative Bacilli Resulted 08/14/17 14:38 Gallbladder Gram Stain Pending Received 08/14/17 14:38 Gallbladder Bacterial Culture Pending Received Last 24 Hours Test 08/13/17 18:47 08/13/17 19:45 08/13/17 23:13 08/13/17 23:33 White Blood Count 15.78 K/uL Red Blood Count 4.40 M/uL Hemoglobin 12.9 g/dL Hematocrit 37.8 % Mean Corpuscular Volume 85.9 fL Mean Corpuscular Hemoglobin 29.3 pg Mean Corpuscular Hemoglobin Concent 34.1 g/dl Platelet Count 179 K/uL Mean Platelet Volume 9.2 fL Neutrophils (%) (Auto) 82.5 % Lymphocytes (%) (Auto) 6.5 % Monocytes (%) (Auto) 10.5 % Eosinophils (%) (Auto) 0.0 % Basophils (%) (Auto) 0.1 % Neutrophils # (Auto) 13.02 K/uL Lymphocytes # (Auto) 1.02 K/uL Monocytes # (Auto) 1.66 K/uL Eosinophils # (Auto) 0.00 K/uL Basophils # (Auto) 0.01 K/uL RDW Standard Deviation 44.2 fL RDW Coefficient of Variation 14.1 % Immature Granulocyte % (Auto) 0.4 % Immature Granulocyte # (Auto) 0.07 K/uL Prothrombin Time 12.2 SECONDS Prothromb Time International Ratio 1.2 Activated Partial Thromboplast Time 27.6 SECONDS Partial Thromboplastin Ratio 1.1 Urine Color DK YELLOW Urine Appearance TURBID Urine pH 5.0 Urine Specific [place] 1.022 Urine Protein 1+ Urine Glucose (UA) 1+ Urine Ketones TRACE Urine Occult Blood 1+ Urine Nitrite POS Urine Bilirubin NEG Urine Urobilinogen NEG Urine Leukocyte Esterase LARGE Urine WBC (Auto) >30 /hpf Urine RBC (Auto) 0-4 /hpf Urine Hyaline Casts (Auto) 1-5 /lpf Urine Epithelial Cells (Auto) 5-10 /lpf Urine Bacteria (Auto) 4+ Sodium Level 131 mmol/L Potassium Level 3.9 mmol/L Chloride Level 95 mmol/L Carbon Dioxide Level 25 mmol/L Anion Gap 11.0 mmol/L Blood Urea Nitrogen 21 mg/dl Creatinine 1.11 mg/dl Est Creatinine Clear Calc Drug Dose 49.9 ml/min Estimated GFR () 68.8 Estimated GFR (Non- 59.4 BUN/Creatinine Ratio 18.8 Random Glucose 217 mg/dl Calcium Level 9.1 mg/dl Magnesium Level 1.4 mg/dl Total Bilirubin 1.9 mg/dl Aspartate Amino Transf (AST/SGOT) 25 U/L Alanine Aminotransferase (ALT/SGPT) 22 U/L Alkaline Phosphatase 35 U/L Total Protein 7.4 gm/dl Albumin 3.5 gm/dl Globulin 3.9 gm/dl Albumin/Globulin Ratio 0.9 Lipase 79 U/L Lactic Acid Level 2.7 mmol/L 2.3 mmol/L Bedside Glucose 175 mg/dl Test 08/14/17 03:40 08/14/17 05:40 White Blood Count 18.69 K/uL Red Blood Count 3.95 M/uL Hemoglobin 11.6 g/dL Hematocrit 34.3 % Mean Corpuscular Volume 86.8 fL Mean Corpuscular Hemoglobin 29.4 pg Mean Corpuscular Hemoglobin Concent 33.8 g/dl RDW Standard Deviation 45.3 fL RDW Coefficient of Variation 14.3 % Platelet Count 151 K/uL Mean Platelet Volume 8.6 fL Sodium Level 134 mmol/L Potassium Level 4.1 mmol/L Chloride Level 99 mmol/L Carbon Dioxide Level 29 mmol/L Anion Gap 6.0 mmol/L Blood Urea Nitrogen 20 mg/dl Creatinine 1.06 mg/dl Est Creatinine Clear Calc Drug Dose 52.3 ml/min Estimated GFR () 72.8 Estimated GFR (Non- 62.8 BUN/Creatinine Ratio 18.7 Random Glucose 164 mg/dl Estimated Average Glucose 192 mg/dl Hemoglobin A1c 8.3 % Lactic Acid Level 2.0 mmol/L Calcium Level 8.2 mg/dl Magnesium Level 1.5 mg/dl Total Bilirubin 2.0 mg/dl Aspartate Amino Transf (AST/SGOT) 24 U/L Alanine Aminotransferase (ALT/SGPT) 21 U/L Alkaline Phosphatase 34 U/L Total Protein 6.1 gm/dl Albumin 2.8 gm/dl Globulin 3.3 gm/dl Albumin/Globulin Ratio 0.8 Bedside Glucose 153 mg/dl Date/Time Source Procedure Growth Status 08/13/17 23:13 Blood Blood Culture Pending Received 08/13/17 23:13 Blood Blood Culture Pending Received 08/13/17 18:47 Urine , Clean Catch Urine Culture - Preliminary Gram Negative Bacilli Resulted Assessment & Plan 87-year-old male presented with acute cholecystitis. He is being seen today just out of surgery and is doing very well post-op with controlled pain and tolerating PO. He denies chest pain, shortness of breath or other symptoms at this time. His underwent a scheduled knee procedure today, and is down the brice from him. 1. Sepsis 2/2 acute cholecystitis and poss UTI. No UTI symptoms are present. Gallbladder was removed today and pt is resuscitated from a sepsis standpoint. Hemodynamically stable. Cont Zosyn at this time. Trend CBC. 2. DMII, ISS with carb coverage and lantus while inpatient. 3. HTN-controlled, cont home regimen 4. Depression-cont Lexapro and Ativan PRN 5. h/o Lymphoma-in remission s/o chemo 6. Hypomagnesemia-replace and repeat in am. DVT Ppx: SQ heparin Code status: DNR PCP: Delon Dispo: cont to monitor on floor for now. DO Ramy Garrison Hospitalist Consultants: Gen Surg-Haritha Current Inpatient Medications: Current Inpatient Medications Medications (Trade) Dose Ordered Sig/Amilcar Route Start Time Stop Time Status Last Admin Dose Admin Heparin Sodium (Porcine) (Heparin Sq 5000 Unit/0.5ml) 5,000 unit Q8H SQ 08/14/17 06:00 09/13/17 05:59 08/14/17 05:39 5,000 UNIT Acetaminophen (Tylenol Tab) 650 mg Q4H PRN PO 08/13/17 21:30 09/12/17 21:29 Ondansetron HCl (Zofran Inj) 4 mg Q6H PRN IV 08/13/17 21:30 09/12/17 21:29 Glucose (Glucose 40% Gel) 15-30 GRAMS 15 GRAMS... UD PRN PO 08/13/17 21:30 09/12/17 21:29 Glucose (Glucose Chew Tab) 4-8 Tablets 4 Tabl... UD PRN PO 08/13/17 21:30 09/12/17 21:29 Dextrose (Dextrose 50% 50ML Syringe) 25-50ML OF 50% DW IV FOR... UD PRN IV 08/13/17 21:30 09/12/17 21:29 Glucagon (Glucagon Inj) 1 mg UD PRN SQ 08/13/17 21:30 09/12/17 21:29 Miscellaneous Information (Consult) 1 ea DAILY PRN N/A 08/13/17 21:54 09/12/17 21:53 Morphine Sulfate (MoRPHine SULFATE INJ) 1 mg Q4 PRN IV 08/13/17 21:30 08/27/17 21:29 Ketorolac Tromethamine (Toradol Inj) 15 mg Q6H PRN IV. 08/13/17 22:00 08/18/17 21:59 Atorvastatin Calcium (Lipitor Tab) 80 mg QPM PO 08/14/17 21:00 09/13/17 20:59 Escitalopram Oxalate (Lexapro Tab) 10 mg QPM PO 08/14/17 21:00 09/13/17 20:59 Fluticasone Propionate (Flonase Nasal [place]) 2 sprays DAILY PRN ROB 08/13/17 22:15 09/12/17 22:14 Latanoprost (Xalatan Oph Soln) 1 drops HS OPB 08/14/17 21:00 09/13/17 20:59 Lorazepam (Ativan Tab) 0.5 mg TID PRN PO 08/13/17 22:15 09/12/17 22:14 Magnesium Oxide (Mag-Ox Tab) 400 mg QAM PO 08/14/17 09:00 09/13/17 08:59 08/14/17 09:56 400 MG Metoprolol Tartrate (Lopressor Tab) 25 mg QAM PO 08/14/17 09:00 09/13/17 08:59 08/14/17 09:58 25 MG Insulin Aspart (novoLOG ASPART) SLIDING SCALE If C... Q6 SC 08/14/17 00:00 09/13/17 00:00 08/13/17 23:40 1 UNITS Piperacillin Sod/ Tazobactam Sod 3.375 gm/Dextrose 115 ml @ 28.75 mls/ hr Q8H IV 08/14/17 00:00 08/24/17 00:00 08/14/17 08:03 28.75 MLS/HR Fentanyl Citrate (Fentanyl Inj) 25 mcg Q5M PRN IV 08/14/17 14:45 08/15/17 14:44 UNV Naloxone HCl (Narcan Inj) 0.2 mg Q2M PRN IV 08/14/17 14:45 08/15/17 14:44 UNV Ondansetron HCl (Zofran Inj) 4 mg ONE PRN IV 08/14/17 14:45 09/13/17 14:44 UNV Labetalol HCl (Normodyne IV) 5 mg Q5M PRN IV 08/14/17 14:45 08/15/17 14:44 UNV Ephedrine Sulfate (EpHEDrine SULFATE INJ) 5 mg Q5M PRN IV 08/14/17 14:45 08/15/17 14:44 UNV Atropine Sulfate (Atropine Sulfate 0.1mg/ml Inj) 0.5 mg Q1M PRN IV 08/14/17 14:45 08/15/17 14:44 UNV
[2017-08-14] MEDS ORDERED: HYDROCODONE/ACETAMINOPHEN 7.5/325MG TAB PO PRN (21:45)
[2017-08-15] MEDS: PIPERACILL/TAZOBAC IV 3.375 GM in DEXTROSE 5% 100ML IV SCH ×3 (00:57→15:47)
[2017-08-15 03:19] VITALS: BP 113/63; PULSE 80; TEMP 37.3; O2SAT 94
[2017-08-15] MEDS: ACETAMINOPHEN 325 MG TAB PO PRN (05:19)
--- NOTE | 2017-08-15 06:46 | Surgery Progress Note ---
Surgery Progress Note Date of Service Aug 15, 2017. Subjective Post OP Day: 1 + feeling well, + ambulating, + pain controlled, + diet (Tolerating clears), No complaints, No nausea, No vomiting Objective Vital Signs: Date Time Temp Pulse Resp B/P (MAP) Pulse Ox O2 Delivery O2 Flow Rate FiO2 08/15/17 03:19 37.3 80 16 113/63 (80) 94 Nasal Cannula 2.0 08/15/17 00:15 Nasal Cannula 2.0 08/14/17 22:51 36.9 81 20 127/69 (88) 92 Nasal Cannula 2.0 08/14/17 18:53 36.8 73 16 102/56 (71) 94 08/14/17 18:02 36.9 73 18 113/67 (82) 97 Room Air 08/14/17 16:56 71 16 112/58 (76) 94 08/14/17 16:26 36.5 74 16 118/67 (84) 95 Nasal Cannula 08/14/17 15:50 94 Nasal Cannula 3.0 08/14/17 15:50 36.9 79 18 111/65 (80) 94 Nasal Cannula 3.0 08/14/17 15:50 94 Nasal Cannula 3.0 08/14/17 15:40 36.8 81 16 115/81 94 Oxymask 3 08/14/17 15:30 82 16 125/64 94 Oxymask 3 08/14/17 15:20 86 18 130/74 95 Oxymask 3 08/14/17 15:10 90 18 135/69 95 Oxymask 5 08/14/17 15:00 89 18 125/77 95 Oxymask 10 08/14/17 14:51 36.1 92 12 128/92 94 Oxymask 10 08/14/17 10:03 65 126/70 (88) 08/14/17 08:10 Room Air 08/14/17 07:22 37.3 92 17 124/68 (86) 91 Room Air Physical Exam: WENDIE drainage (80ml so far this AM, serosang) General Appearance: WD/WN, no apparent distress Head: normocephalic, atraumatic Abdomen: non distended, soft, no organomegaly, no pulsatile mass, + tenderness (incisional, mild) Incision(s): clean, dry, intact, no erythema, no drainage Laboratory Results: Results Past 24 Hours Test 08/14/17 15:07 08/14/17 16:41 08/14/17 20:54 08/15/17 04:44 Range/Units Bedside Glucose 183 187 220 70-99 mg/dl Microbiology Results 08/14/17 Gram Stain, Received Pending 08/14/17 Bacterial Culture, Received Pending Assessment & Plan POD #1 s/p lap juan w/ IOC Doing well, pain controlled. Tolerating clears, no N/V. Urinating without issue. Will try full liquids for breakfast. ADAT Keep WENDIE for now. WBC 18.69 yesterday, AM labs pending. Continue IV Abx. Will discuss findings with Dr. Wharton. Please contact with questions or concerns.
[2017-08-15 07:11] VITALS: BP 107/64; PULSE 82; TEMP 37; O2SAT 94
[2017-08-15 07:56] LABS: BASO % 0.1 %; BASO ABS # 0.01 K/uL (0-0.2); EOS % 0.8 %; HEMATOCRIT 26.8 % (42-52); HEMOGLOBIN 9.2 g/dL (14.0-18.0); IG# 0.02 K/uL (0.00-0.02); LYMPH % 7.8 %; LYMPH ABS # 1.03 K/uL (1.2-3.4); MEAN CORPUSCULAR HEMOGLOBIN 29.9 pg (25-34); MEAN CORPUSCULAR HGB CONC 34.3 g/dl (32-36); MEAN PLATELET VOLUME 8.5 fL (7.4-10.4); MONO % 6.7 %; MONO ABS # 0.88 K/uL (0.11-0.59); NEUT % 84.4 %; NEUT ABS # 11.14 K/uL (1.4-6.5); PLATELET COUNT 130 K/uL (130-400); RED CELL DISTRIBUTION WIDTH CV 14.7 % (11.5-14.5); RED CELL DISTRIBUTION WIDTH SD 46.6 fL (36.4-46.3); WHITE BLOOD COUNT 13.18 K/uL (4.8-10.8)
[2017-08-15 08:21] LABS: CALCIUM 7.9 mg/dl (8.5-10.1); CREATININE 0.94 mg/dl (0.60-1.40); PHOSPHORUS 2.2 mg/dl (2.5-4.9); POTASSIUM 3.4 mmol/L (3.5-5.1)
[2017-08-15] MEDS: MAGNESIUM OXIDE 400 MG TAB PO SCH (09:17)
[2017-08-15] MEDS: METOPROLOL TARTRATE 25 MG TAB PO SCH (09:17)
[2017-08-15] MEDS: INSULIN ASPART 100 UNITS/ML 3 ML PEN SC SCH ×4 (09:22→21:27)
[2017-08-15 09:24] VITALS: BP 115/68; O2SAT 87; O2SAT 96
[2017-08-15] MEDS ORDERED: POTASSIUM CHLORIDE 20 MEQ TABCR PO ONE (10:00)
[2017-08-15 10:29] LABS: ALBUMIN 2.7 gm/dl (3.4-5.0); TOTAL PROTEIN 5.4 gm/dl (6.4-8.2)
--- NOTE | 2017-08-15 10:44 | Anesthesiology Progress Note ---
Anesthesia Post Op Note Date & Time Aug 15, 2017 at 10:44 Vital Signs Pain Intensity: 0.0 Vital Signs Past 12 Hours Date Time Temp Pulse Resp B/P (MAP) Pulse Ox O2 Delivery O2 Flow Rate FiO2 08/15/17 09:24 115/68 (84) 87 Room Air 08/15/17 09:24 96 Nasal Cannula 2.0 08/15/17 07:30 Room Air 08/15/17 07:11 37.0 82 18 107/64 (78) 94 Nasal Cannula 2.0 08/15/17 03:19 37.3 80 16 113/63 (80) 94 Nasal Cannula 2.0 08/15/17 00:15 Nasal Cannula 2.0 08/14/17 22:51 36.9 81 20 127/69 (88) 92 Nasal Cannula 2.0 Notes Mental Status: alert / awake / arousable, participated in evaluation Pt Amnestic to Procedure: Yes Nausea / Vomiting: adequately controlled Pain: adequately controlled Airway Patency, RR, SpO2: stable & adequate BP & HR: stable & adequate Hydration State: stable & adequate Anesthetic Complications: no major complications apparent
[2017-08-15 15:31] VITALS: BP 112/68; PULSE 74; TEMP 36.9; O2SAT 93
[2017-08-15 15:40] VITALS: O2SAT 93
--- NOTE | 2017-08-15 18:38 | Progress Note ---
Medicine Progress Note Date & Time of Visit: Aug 15, 2017 at 18:31. Subjective 87-year-old male presented with acute cholecystitis. He is being seen today just out of surgery and is doing very well post-op with controlled pain and tolerating PO. He denies chest pain, shortness of breath or other symptoms at this time. His underwent a scheduled knee procedure today, and is down the brice from him. Objective Last 8 Hrs Date Time Temp Pulse Resp B/P (MAP) Pulse Ox O2 Delivery O2 Flow Rate FiO2 08/15/17 15:31 36.9 74 17 112/68 (83) 93 Nasal Cannula 1.0 Physical Exam: GEN: WNWD, in no acute distress, alert and appropriate HEENT: NC/AT, PERRL, normal sclerae CARDIO: reg rate, S1/2 heard without m/g/r LUNGS: CTA bilaterally, no crackles, rales or wheezes, good diaphragmatic excursion ABD: soft, non-tender, non-distended, no rebound or guarding, incision sites are closed and non-draining. WENDIE drain in place. Hypoactive bowel sounds EXTREMITY: RP and DP palpable 2+ bilat, no LE swelling or edema, extremities are warm and well-perfused NEURO: CN 2-12 grossly intact, no gross focal deficits. MUSC: 5/5 strength throughout, no gross focal deficits. SKIN: warm and dry with wounds as above. Laboratory Results: 08/15/17 07:10 Red Blood Count 3.08, Mean Corpuscular Volume 87.0, Mean Corpuscular Hemoglobin 29.9, Mean Corpuscular Hemoglobin Concent 34.3, Mean Platelet Volume 8.5, Neutrophils (%) (Auto) 84.4, Lymphocytes (%) (Auto) 7.8, Monocytes (%) (Auto) 6.7, Eosinophils (%) (Auto) 0.8, Basophils (%) (Auto) 0.1, Neutrophils # (Auto) 11.14, Lymphocytes # (Auto) 1.03, Monocytes # (Auto) 0.88, Eosinophils # (Auto) 0.10, Basophils # (Auto) 0.01 08/15/17 07:10 Test 08/13/17 18:47 08/14/17 03:40 08/15/17 07:10 08/15/17 17:33 Prothrombin Time 12.2 SECONDS (9.0-12.0) Prothromb Time International Ratio 1.2 (0.9-1.1) Activated Partial Thromboplast Time 27.6 SECONDS (21.0-31.0) Partial Thromboplastin Ratio 1.1 Urine Color DK YELLOW Urine Appearance TURBID (CLEAR) Urine pH 5.0 (4.5-7.5) Urine Specific [place] 1.022 (1.000-1.030) Urine Protein 1+ (NEG) Urine Glucose (UA) 1+ (NEG) Urine Ketones TRACE (NEG) Urine Occult Blood 1+ (NEG) Urine Nitrite POS (NEG) Urine Bilirubin NEG (NEG) Urine Urobilinogen NEG (NEG) Urine Leukocyte Esterase LARGE (NEG) Urine WBC (Auto) >30 /hpf (0-5) Urine RBC (Auto) 0-4 /hpf (0-4) Urine Hyaline Casts (Auto) 1-5 /lpf (0-5) Urine Epithelial Cells (Auto) 5-10 /lpf (0-5) Urine Bacteria (Auto) 4+ (NEG) Lipase 79 U/L (73-393) Estimated Average Glucose 192 mg/dl Hemoglobin A1c 8.3 % (4.5-5.6) Lactic Acid Level 2.0 mmol/L (0.4-2.0) Globulin 3.3 gm/dl (2.5-4.0) Albumin/Globulin Ratio 0.8 (0.9-2) White Blood Count 13.18 K/uL (4.8-10.8) Red Blood Count 3.08 M/uL (4.7-6.1) Hemoglobin 9.2 g/dL (14.0-18.0) Hematocrit 26.8 % (42-52) Mean Corpuscular Volume 87.0 fL (80-100) Mean Corpuscular Hemoglobin 29.9 pg (25-34) Mean Corpuscular Hemoglobin Concent 34.3 g/dl (32-36) Platelet Count 130 K/uL (130-400) Mean Platelet Volume 8.5 fL (7.4-10.4) Neutrophils (%) (Auto) 84.4 % Lymphocytes (%) (Auto) 7.8 % Monocytes (%) (Auto) 6.7 % Eosinophils (%) (Auto) 0.8 % Basophils (%) (Auto) 0.1 % Neutrophils # (Auto) 11.14 K/uL (1.4-6.5) Lymphocytes # (Auto) 1.03 K/uL (1.2-3.4) Monocytes # (Auto) 0.88 K/uL (0.11-0.59) Eosinophils # (Auto) 0.10 K/uL (0-0.5) Basophils # (Auto) 0.01 K/uL (0-0.2) RDW Standard Deviation 46.6 fL (36.4-46.3) RDW Coefficient of Variation 14.7 % (11.5-14.5) Immature Granulocyte % (Auto) 0.2 % Immature Granulocyte # (Auto) 0.02 K/uL (0.00-0.02) Anion Gap 7.0 mmol/L (3-11) Est Creatinine Clear Calc Drug Dose 58.9 ml/min Estimated GFR () 84.2 Estimated GFR (Non- 72.6 BUN/Creatinine Ratio 23.4 (10-20) Calcium Level 7.9 mg/dl (8.5-10.1) Phosphorus Level 2.2 mg/dl (2.5-4.9) Magnesium Level 2.3 mg/dl (1.8-2.4) Total Bilirubin 1.8 mg/dl (0.2-1) Direct Bilirubin 0.5 mg/dl (0-0.2) Aspartate Amino Transf (AST/SGOT) 45 U/L (15-37) Alanine Aminotransferase (ALT/SGPT) 40 U/L (12-78) Alkaline Phosphatase 39 U/L (45-117) Total Protein 5.4 gm/dl (6.4-8.2) Albumin 2.7 gm/dl (3.4-5.0) Bedside Glucose 150 mg/dl (70-99) Date/Time Source Procedure Growth Status 08/13/17 23:13 Blood Blood Culture - Preliminary NO GROWTH TO DATE. Resulted 08/13/17 18:47 Urine , Clean Catch Urine Culture - Final Klebsiella Oxytoca Complete 08/14/17 14:38 Gallbladder Gram Stain - Final Resulted 08/14/17 14:38 Gallbladder Bacterial Culture - Preliminary NO GROWTH TO DATE. Resulted Last 24 Hours Test 08/14/17 20:54 08/15/17 07:10 08/15/17 08:16 08/15/17 12:10 Bedside Glucose 220 mg/dl 162 mg/dl 212 mg/dl White Blood Count 13.18 K/uL Red Blood Count 3.08 M/uL Hemoglobin 9.2 g/dL Hematocrit 26.8 % Mean Corpuscular Volume 87.0 fL Mean Corpuscular Hemoglobin 29.9 pg Mean Corpuscular Hemoglobin Concent 34.3 g/dl Platelet Count 130 K/uL Mean Platelet Volume 8.5 fL Neutrophils (%) (Auto) 84.4 % Lymphocytes (%) (Auto) 7.8 % Monocytes (%) (Auto) 6.7 % Eosinophils (%) (Auto) 0.8 % Basophils (%) (Auto) 0.1 % Neutrophils # (Auto) 11.14 K/uL Lymphocytes # (Auto) 1.03 K/uL Monocytes # (Auto) 0.88 K/uL Eosinophils # (Auto) 0.10 K/uL Basophils # (Auto) 0.01 K/uL RDW Standard Deviation 46.6 fL RDW Coefficient of Variation 14.7 % Immature Granulocyte % (Auto) 0.2 % Immature Granulocyte # (Auto) 0.02 K/uL Sodium Level 134 mmol/L Potassium Level 3.4 mmol/L Chloride Level 99 mmol/L Carbon Dioxide Level 28 mmol/L Anion Gap 7.0 mmol/L Blood Urea Nitrogen 22 mg/dl Creatinine 0.94 mg/dl Est Creatinine Clear Calc Drug Dose 58.9 ml/min Estimated GFR () 84.2 Estimated GFR (Non- 72.6 BUN/Creatinine Ratio 23.4 Random Glucose 149 mg/dl Calcium Level 7.9 mg/dl Phosphorus Level 2.2 mg/dl Magnesium Level 2.3 mg/dl Total Bilirubin 1.8 mg/dl Direct Bilirubin 0.5 mg/dl Aspartate Amino Transf (AST/SGOT) 45 U/L Alanine Aminotransferase (ALT/SGPT) 40 U/L Alkaline Phosphatase 39 U/L Total Protein 5.4 gm/dl Albumin 2.7 gm/dl Test 08/15/17 17:33 Bedside Glucose 150 mg/dl Assessment & Plan 87-year-old male presented with acute cholecystitis. He is being seen today just out of surgery and is doing very well post-op with controlled pain and tolerating PO. He denies chest pain, shortness of breath or other symptoms at this time. His underwent a scheduled knee procedure today, and is down the brice from him. 1. Sepsis 2/2 acute cholecystitis and UTI. No UTI symptoms are present. Status post laparoscopic cholecystectomy postop day #1. The patient is hemodynamically stable, passing gas, having bowel movements, and tolerating solid food at this point. Cont Zosyn at this time. 2. DMII, ISS with carb coverage and lantus while inpatient. Controlled 3. HTN-controlled, cont home regimen 4. Depression-cont Lexapro and Ativan PRN 5. h/o Lymphoma-in remission s/o chemo 6. Hypomagnesemia-resolved DVT Ppx: Lovenox Code status: DNR PCP: Delon Dispo: Plan to DC in 1-2 days home. Pending PT/OT evaluation as patient ambulates with cane. Of note patient mentions that his also is going home after her surgery tomorrow and that his daughter will be at their home to [facility] Consultants: Gen SurgJoel Current Inpatient Medications: Current Inpatient Medications Medications (Trade) Dose Ordered Sig/Amilcar Route Start Time Stop Time Status Last Admin Dose Admin Acetaminophen (Tylenol Tab) 650 mg Q4H PRN PO 08/13/17 21:30 09/12/17 21:29 08/15/17 05:19 650 MG Ondansetron HCl (Zofran Inj) 4 mg Q6H PRN IV 08/13/17 21:30 09/12/17 21:29 08/14/17 16:12 4 MG Glucose (Glucose 40% Gel) 15-30 GRAMS 15 GRAMS... UD PRN PO 08/13/17 21:30 09/12/17 21:29 Glucose (Glucose Chew Tab) 4-8 Tablets 4 Tabl... UD PRN PO 08/13/17 21:30 09/12/17 21:29 Dextrose (Dextrose 50% 50ML Syringe) 25-50ML OF 50% DW IV FOR... UD PRN IV 08/13/17 21:30 09/12/17 21:29 Glucagon (Glucagon Inj) 1 mg UD PRN SQ 08/13/17 21:30 09/12/17 21:29 Miscellaneous Information (Consult) 1 ea DAILY PRN N/A 08/13/17 21:54 09/12/17 21:53 Atorvastatin Calcium (Lipitor Tab) 80 mg QPM PO 08/14/17 21:00 09/13/17 20:59 08/14/17 21:07 80 MG Escitalopram Oxalate (Lexapro Tab) 10 mg QPM PO 08/14/17 21:00 09/13/17 20:59 08/14/17 21:07 10 MG Fluticasone Propionate (Flonase Nasal [place]) 2 sprays DAILY PRN ROB 08/13/17 22:15 09/12/17 22:14 Latanoprost (Xalatan Oph Soln) 1 drops HS OPB 08/14/17 21:00 09/13/17 20:59 08/14/17 21:09 1 DROPS Lorazepam (Ativan Tab) 0.5 mg TID PRN PO 08/13/17 22:15 09/12/17 22:14 Magnesium Oxide (Mag-Ox Tab) 400 mg QAM PO 08/14/17 09:00 09/13/17 08:59 08/15/17 09:17 400 MG Metoprolol Tartrate (Lopressor Tab) 25 mg QAM PO 08/14/17 09:00 09/13/17 08:59 08/15/17 09:17 25 MG Piperacillin Sod/ Tazobactam Sod 3.375 gm/Dextrose 115 ml @ 28.75 mls/ hr Q8H IV 08/14/17 00:00 08/24/17 00:00 08/15/17 15:47 28.75 MLS/HR Insulin Aspart (novoLOG ASPART) SLIDING SCALE If C... ACHS SC 08/14/17 17:15 09/13/17 17:14 08/15/17 13:23 9 UNITS Acetaminophen/ Hydrocodone Bitart ([place] 7.5/325 Tab) 1 tab Q4H PRN PO 08/14/17 21:45 08/28/17 21:44
[2017-08-15] MEDS: ESCITALOPRAM OXALATE 10 MG TAB PO SCH (21:13)
[2017-08-15] MEDS: ATORVASTATIN 40 MG TAB PO SCH (21:13)
[2017-08-15] MEDS: LATANOPROST 0.005% OP SOLN 2.5 ML BTL OPB SCH (21:14)
[2017-08-15 23:57] VITALS: BP 119/67; PULSE 84; TEMP 37.1; O2SAT 88
[2017-08-16] MEDS: PIPERACILL/TAZOBAC IV 3.375 GM in DEXTROSE 5% 100ML IV SCH (00:32)
[2017-08-16] MEDS: ACETAMINOPHEN 325 MG TAB PO PRN (05:28)
--- NOTE | 2017-08-16 06:39 | Surgery Progress Note ---
Surgery Progress Note Date of Service Aug 16, 2017. Subjective Post OP Day: 2 + feeling well, + ambulating, + bowel movement, + flatus, + pain controlled, + diet (Tolerating regular diet), No complaints, No nausea, No vomiting Objective Vital Signs: Date Time Temp Pulse Resp B/P (MAP) Pulse Ox O2 Delivery O2 Flow Rate FiO2 08/16/17 00:00 Nasal Cannula 1.0 08/15/17 23:57 37.1 84 18 119/67 (84) 88 Room Air 08/15/17 15:40 93 Nasal Cannula 1.0 08/15/17 15:31 36.9 74 17 112/68 (83) 93 Nasal Cannula 1.0 08/15/17 09:24 115/68 (84) 87 Room Air 08/15/17 09:24 96 Nasal Cannula 2.0 08/15/17 07:30 Room Air 08/15/17 07:11 37.0 82 18 107/64 (78) 94 Nasal Cannula 2.0 Physical Exam: WENDIE drainage (200ml output this am, serosang. Minimal drainage on exam) General Appearance: WD/WN, no apparent distress Head: normocephalic, atraumatic Respiratory/Chest: no respiratory distress, no accessory muscle use Abdomen: soft, no organomegaly, no pulsatile mass, + distended, + tenderness ( mild incisional) Incision(s): clean, dry, intact, no erythema, no drainage Laboratory Results: Results Past 24 Hours Test 08/15/17 07:10 08/15/17 08:16 08/15/17 12:10 08/15/17 17:33 Range/Units White Blood Count 13.18 4.8-10.8 K/uL Red Blood Count 3.08 4.7-6.1 M/uL Hemoglobin 9.2 14.0-18.0 g/dL Hematocrit 26.8 42-52 % Mean Corpuscular Volume 87.0 80-100 fL Mean Corpuscular Hemoglobin 29.9 25-34 pg Mean Corpuscular Hemoglobin Concent 34.3 32-36 g/dl Platelet Count 130 130-400 K/uL Mean Platelet Volume 8.5 7.4-10.4 fL Neutrophils (%) (Auto) 84.4 % Lymphocytes (%) (Auto) 7.8 % Monocytes (%) (Auto) 6.7 % Eosinophils (%) (Auto) 0.8 % Basophils (%) (Auto) 0.1 % Neutrophils # (Auto) 11.14 1.4-6.5 K/uL Lymphocytes # (Auto) 1.03 1.2-3.4 K/uL Monocytes # (Auto) 0.88 0.11-0.59 K/uL Eosinophils # (Auto) 0.10 0-0.5 K/uL Basophils # (Auto) 0.01 0-0.2 K/uL RDW Standard Deviation 46.6 36.4-46.3 fL RDW Coefficient of Variation 14.7 11.5-14.5 % Immature Granulocyte % (Auto) 0.2 % Immature Granulocyte # (Auto) 0.02 0.00-0.02 K/uL Sodium Level 134 136-145 mmol/L Potassium Level 3.4 3.5-5.1 mmol/L Chloride Level 99 98-107 mmol/L Carbon Dioxide Level 28 21-32 mmol/L Anion Gap 7.0 3-11 mmol/L Blood Urea Nitrogen 22 7-18 mg/dl Creatinine 0.94 0.60-1.40 mg/dl Est Creatinine Clear Calc Drug Dose 58.9 ml/min Estimated GFR () 84.2 Estimated GFR (Non- 72.6 BUN/Creatinine Ratio 23.4 10-20 Random Glucose 149 70-99 mg/dl Calcium Level 7.9 8.5-10.1 mg/dl Phosphorus Level 2.2 2.5-4.9 mg/dl Magnesium Level 2.3 1.8-2.4 mg/dl Total Bilirubin 1.8 0.2-1 mg/dl Direct Bilirubin 0.5 0-0.2 mg/dl Aspartate Amino Transf (AST/SGOT) 45 15-37 U/L Alanine Aminotransferase (ALT/SGPT) 40 12-78 U/L Alkaline Phosphatase 39 45-117 U/L Total Protein 5.4 6.4-8.2 gm/dl Albumin 2.7 3.4-5.0 gm/dl Bedside Glucose 162 212 150 70-99 mg/dl Test 08/15/17 20:23 08/16/17 06:13 Range/Units Bedside Glucose 186 70-99 mg/dl Assessment & Plan POD #2 s/p lap juan w/ IOC Doing well, no complaints. Pain controlled. Tolerating regular diet, No N/V. WENDIE in place. +flatus, +BM. WBC 13.18, AM labs pending, continue IV zosyn. WENDIE 200ml output yesterday - will most likely keep at d/c and remove in office. okay to d/c from surgical standpoint today, with/without oral course of Abx pending AM labs. Findings discussed with Dr. Wharton. Please contact with questions or concerns. POD #1 s/p lap juan w/ IOC Doing well, pain controlled. Tolerating clears, no N/V. Urinating without issue. Will try full liquids for breakfast. ADAT Keep WENDIE for now. WBC 18.69 yesterday, AM labs pending. Continue IV Abx. Will discuss findings with Dr. Wharton. Please contact with questions or concerns.
[2017-08-16 06:43] LABS: HEMATOCRIT 29.3 % (42-52); HEMOGLOBIN 9.5 g/dL (14.0-18.0); MEAN CELL VOLUME 87.7 fL (80-100); MEAN CORPUSCULAR HEMOGLOBIN 28.4 pg (25-34); MEAN CORPUSCULAR HGB CONC 32.4 g/dl (32-36); MEAN PLATELET VOLUME 8.7 fL (7.4-10.4); PLATELET COUNT 163 K/uL (130-400); RED CELL DISTRIBUTION WIDTH CV 14.5 % (11.5-14.5); RED CELL DISTRIBUTION WIDTH SD 46.8 fL (36.4-46.3); WHITE BLOOD COUNT 9.85 K/uL (4.8-10.8)
[2017-08-16 07:23] VITALS: BP 124/73; PULSE 69; TEMP 37.3; O2SAT 91
--- NOTE | 2017-08-16 08:20 | Discharge Instructions ---
Discharge Instructions Date of Service Aug 16, 2017. Admission Reason for Admission: Acute Cholecystitis Discharge Discharge Diagnosis / Problem: Acute Cholecystitis Discharge Goals Goal(s): Decrease discomfort, Improve function Activity Recommendations Activity Limitations: as noted below Lifting Limitations: no more than 10 pounds Exercise/Sports Limitations: until after follow-up appointment May Resume Sexual Activity: after follow-up appointment Shower/Bathe: no limitations Driving or Machine Use: resume 1 day after discharge . Instructions / Follow-Up Instructions / Follow-Up Please call the General Surgery Clinic at [phone] to schedule drain removal for 08/20/2017. General Surgery Clinic located at [address] [place] [address] DennisJORGE. Please call with any questions or concerns. Please take all medications as instructed. A follow-up chest xray is recommended in 4 weeks to ensure resolution of some changes seen at the lung bases. This can be ordered through your primary care physician's office. You have a follow-up appointment with Dr. Karolyn Dunham on 08/21 @ 10:45am for follow-up from this hospitalization. Please follow all post-operative instructions as described above. It was a pleasure taking care of you! Call if you have any questions or problems. You can reach a [facility] hospitalist on duty at [facility] 24 hours a day by calling [phone]. Take care of yourself. Yolanda Ronquillo DO [facility] Hospitalist Current Hospital Diet Patient's current hospital diet: Diabetes Type 2 Diet Discharge Diet Recommended Diet: Diabetes Type 2 Diet Procedures Procedures Performed: Laparoscopic Cholecystectomy with Cholangiogram Pending Studies Studies pending at discharge: yes List of pending studies: Pathology report. Laboratory Results Hemoglobin A1c Test 08/14/17 03:40 Range/Units Estimated Average Glucose 192 mg/dl Hemoglobin A1c 8.3 H 4.5-5.6 % Medical Emergencies . Who to Call and When: Medical Emergencies: If at any time you feel your situation is an emergency, please call 911 immediately. . Non-Emergent Contact Non-Emergency issues call your: Primary Care Provider, Surgeon Call Non-Emergent contact if: temperature is above 101.5, your pain is not controlled, wound has increased drainage, wound has increased redness . "Provider Documentation" section prepared by Connie Saldivar. .
[2017-08-16] MEDS: MAGNESIUM OXIDE 400 MG TAB PO SCH (08:30)
[2017-08-16] MEDS: METOPROLOL TARTRATE 25 MG TAB PO SCH (08:30)
[2017-08-16] MEDS: INSULIN ASPART 100 UNITS/ML 3 ML PEN SC SCH ×2 (08:33→12:00)
[2017-08-16] MEDS ORDERED: AMOXICILLIN/CLAVULANATE TAB 875 MG TAB PO SCH (09:00)
[2017-08-16] MEDS ORDERED: ENOXAPARIN 40 MG/0.4 ML SYR SQ SCH (09:00)
[2017-08-16] MEDS ORDERED: AMOX1TAB43 PO (13:07)
[2017-08-16 13:14] VITALS: BP 124/73; PULSE 69; TEMP 37.3; O2SAT 91
--- NOTE | 2017-08-16 13:23 | Discharge Summary ---
Discharge Summary Date of Service Aug 16, 2017. Discharge Summary Admission Date: Aug 13, 2017 at 21:23 Discharge Date: Aug 16, 2017 Discharge Disposition: Home Principal Diagnosis: Sepsis secondary to acute cholecystitis status post laparoscopic cholecystectomy with intraoperative cholangiogram Klebsiella oxytoca UTI Diabetes type 2 Hypertension Depression History of lymphoma Hypomagnesemia Procedures: lap juan with intraoperative cholangiogram. Vaccinations: None. Consultations: Gen Tamia Pending Studies/Follow-Up: see instructions below. Medication Reconciliation New Medications: Amoxicillin & Pot Clavulanate (Amoxicillin/Clavulanate P) 1 Tab Tab 875 MG PO BID for 3 Days, #6 TAB Continued Medications: Aspirin (Aspirin Ec) 81 Mg Tab 81 MG PO QAM Atorvastatin (Lipitor) 80 Mg Tab 80 MG PO QPM, TAB Cholecalciferol (Vitamin D3) 2,000 Unit Cap 2000 INTER.UNIT PO QAM, CAP Escitalopram (Lexapro) 10 Mg Tab 10 MG PO QPM, TAB Fluticasone Propionate (Nasal) (Flonase Allergy Relief) 50 Mcg/Act Spr 2 SPRAYS ROB DAILY PRN for Allergy Symptoms Latanoprost (Xalatan 0.005% Oph Malia) 0.005 % Malia 1 DROP OPB HS, ML Lorazepam (Ativan) 0.5 Mg Tab 0.5 MG PO TID PRN for Anxiety, TAB Magnesium Oxide (Mag-Ox) 400 Mg Tab 400 MG PO QAM, TAB Metformin Ext Rel (Glucophage Ext Rel) 500 Mg Tab 500 MG PO BID, TAB Metoprolol Tartrate (Lopressor) (Lopressor) 50 Mg Tab 25 MG PO QAM, TAB Multiple Vitamins W/ Minerals (Icaps) 1 Cap Cap 1 CAP PO QAM Admission Information HPI (per Admitting provider): Patient is an 87-year-old male with a PMH of DM II, HTN, history of lymphoma ( in remission) and other medical problems listed below who presents with abdominal pain that began this morning. Patient was in normal state of health last evening when he went to bed but awoke at 0300 with sharp, nonradiating, 9/ 10 intermittent right upper quadrant pain. Pain is worse with inspiration and there are no alleviating factors. Associated with poor p.o. intake and decreased appetite today. Denies any associated nausea, vomiting or diarrhea. Went to PCP for evaluation and had a CT abdomen/pelvis done, which showed evidence of acute cholecystitis. Was sent to ED for IV antibiotics and surgical evaluation. Denies lightheadedness, visual changes, chest pain, SOB or LE swelling. Denies a personal history of gallstones. Lives with his , who manages patient's medications. Takes baby aspirin daily but denies use of anticoagulation. Denies history of heart disease, CHF or CVA (H/o cerebellar CVA on [facility] problem list, however). Is a DNR. Physical Exam (per Admitting): General Appearance: + mild distress Head: normocephalic, atraumatic Eyes: normal inspection, PERRL, sclerae normal ENT: normal ENT inspection, hearing grossly normal, pharynx normal (dry mucous membranes ) Neck: supple, thyroid normal, trachea midline Respiratory/Chest: chest non-tender, lungs clear, normal breath sounds, no respiratory distress, no accessory muscle use Cardiovascular: regular rate, rhythm, normal peripheral pulses, + systolic murmur Abdomen/GI: normal bowel sounds, soft, no organomegaly, + tenderness (TTP in RUQ, RLQ ) Back: normal inspection Extremities/Musculoskelatal: normal inspection, no calf tenderness, no pedal edema Neurologic/Psych: no motor/sensory deficits, alert, normal mood/affect, oriented x 3 Skin: normal color, warm/dry Hospital Course 87-year-old male presented with acute cholecystitis. He is being seen today just out of surgery and is doing very well post-op with controlled pain and tolerating PO. He denies chest pain, shortness of breath or other symptoms at this time. His underwent a scheduled knee procedure today, and is down the brice from him. 1. Sepsis 2/2 acute cholecystitis and UTI. No UTI symptoms are present. Status post laparoscopic cholecystectomy postop day #1. The patient is hemodynamically stable, passing gas, having bowel movements, and tolerating solid food at this point. Cont Zosyn at this time. 2. DMII, ISS with carb coverage and lantus while inpatient. Controlled 3. HTN-controlled, cont home regimen 4. Depression-cont Lexapro and Ativan PRN 5. h/o Lymphoma-in remission s/o chemo 6. Hypomagnesemia-resolved DVT Ppx: Lovenox Code status: DNR PCP: Delon Dispo: Plan to DC in 1-2 days home. Pending PT/OT evaluation as patient ambulates with cane. Of note patient mentions that his also is going home after her surgery tomorrow and that his daughter will be at their home to help DO Ramy Garrison Total time spent on discharge = 60 minutes This includes examination of the patient, discharge planning, medication reconciliation, and communication with other providers. Discharge Instructions [facility] [address] [place] [address] Discharge Surgical Patient Name: Rubin Rolle Unit Number: [id number] Date of : 1930 Patient Status: Admitted Inpatient Attending Doctor: Yolanda Ronquillo DO DI: Surgical v5 Discharge Instructions Date of Service Aug 16, 2017. Admission Reason for Admission: Acute Cholecystitis Discharge Discharge Diagnosis / Problem: Acute Cholecystitis Discharge Goals Goal(s): Decrease discomfort, Improve function Activity Recommendations Activity Limitations: as noted below Lifting Limitations: no more than 10 pounds Exercise/Sports Limitations: until after follow-up appointment May Resume Sexual Activity: after follow-up appointment Shower/Bathe: no limitations Driving or Machine Use: resume 1 day after discharge . Instructions / Follow-Up Instructions / Follow-Up Please call the General Surgery Clinic at [phone] to schedule drain removal for 08/20/2017. General Surgery Clinic located at [address] [place] [address]. Please call with any questions or concerns. Please take all medications as instructed. A follow-up chest xray is recommended in 4 weeks to ensure resolution of some changes seen at the lung bases. This can be ordered through your primary care physician's office. You have a follow-up appointment with Dr. Karolyn Dunham on 08/21 @ 10:45am for follow-up from this hospitalization. Please follow all post-operative instructions as described above. It was a pleasure taking care of you! Call if you have any questions or problems. You can reach a Ramy hospitalist on duty at [facility] 24 hours a day by calling [phone]. Take care of yourself. DO Ramy Garrisonist Current Hospital Diet Patient's current hospital diet: Diabetes Type 2 Diet Discharge Diet Recommended Diet: Diabetes Type 2 Diet Procedures Procedures Performed: Laparoscopic Cholecystectomy with Cholangiogram Pending Studies Studies pending at discharge: yes List of pending studies: Pathology report. Laboratory Results Hemoglobin A1c Test 08/14/17 03:40 Range/Units Estimated Average Glucose 192 mg/dl Hemoglobin A1c 8.3 H 4.5-5.6 % Medical Emergencies . Who to Call and When: Medical Emergencies: If at any time you feel your situation is an emergency, please call 911 immediately. . Non-Emergent Contact Non-Emergency issues call your: Primary Care Provider, Surgeon Call Non-Emergent contact if: temperature is above 101.5, your pain is not controlled, wound has increased drainage, wound has increased redness . "Provider Documentation" section prepared by Connie Saldivar. . Additional Copies To Karolyn Dunham D.O.; Mehdi Jernigan M.D.
== END 2017-08-16 14:00 | disposition home or self-care (01) | DRG 854 ==
LOC: C.EDB 17:54 → C.MSN 21:23 → ENRESERV 21:40
PROVIDERS: ADMIT Internal Medicine; ATTEND Hospitalist
PROC: 0FT44ZZ Resection of Gallbladder, Percutaneous Endoscopic Approach (ICD-10-PCS; principal; 2017-08-14 13:15)
DX: A41.9 Sepsis, unspecified organism (principal); K80.00 Calculus of gallbladder with acute cholecystitis without obstruction; N39.0 Urinary tract infection, site not specified; E87.1 Hypo-osmolality and hyponatremia; B96.1 Klebsiella pneumoniae [K. pneumoniae] as the cause of diseases classified elsewhere; E83.42 Hypomagnesemia; E11.65 Type 2 diabetes mellitus with hyperglycemia; I10 Essential (primary) hypertension; F32.9 Major depressive disorder, single episode, unspecified; E55.9 Vitamin D deficiency, unspecified; E78.5 Hyperlipidemia, unspecified; H40.9 Unspecified glaucoma; Z66 Do not resuscitate; Z85.71 Personal history of Hodgkin lymphoma; Z86.73 Personal history of transient ischemic attack (TIA), and cerebral infarction without residual deficits; Z87.891 Personal history of nicotine dependence; Z98.890 Other specified postprocedural states; Z79.82 Long term (current) use of aspirin; Z79.84 Long term (current) use of oral hypoglycemic drugs; Z79.899 Other long term (current) drug therapy; Z88.1 Allergy status to other antibiotic agents; Z88.5 Allergy status to narcotic agent; Z88.8 Allergy status to other drugs, medicaments and biological substances; Z83.79 Family history of other diseases of the digestive system; Z83.3 Family history of diabetes mellitus; Z82.49 Family history of ischemic heart disease and other diseases of the circulatory system; Z83.6 Family history of other diseases of the respiratory system